=== PATIENT | male | born 1970 | race Caucasian/White ===

== ENCOUNTER 2021-02-16 14:04 | Emergency (ER) | payer OTHER ==
[~2021-02-16] VITALS: Ht 177.8 cm; Wt 52.6 kg
[2021-02-16] MEDS ORDERED: OMEPRAZOLE20 M1 PO (14:40)
[2021-02-16] MEDS ORDERED: POTASSIUM CHLO20 ME1 PO (14:40)
[2021-02-16] MEDS ORDERED: ELIQUIS5 MG PO (17:31)
--- NOTE | 2021-02-16 19:57 | EKG ---
[facility] [address] [facility] [place], [place] [address] Signed Sinus tachycardia Otherwise normal ECG No previous ECGs available Confirmed by MAHIN WELLRE DO ([id number]) on 02/16/2021 7:57:44 PM Electronically Signed By: MAHIN WELLER DO 02/16/211956 PATIENT NAME: DARRIUS CORDERO Electrocardiogram DATE OF : 72 PHYSICIAN: MAHIN WELLER DO REPORT #: [id number] REPORT IS CONFIDENTIAL AND NOT TO BE RELEASED WITHOUT AUTHORIZATION
== END 2021-02-16 19:12 | disposition left against medical advice (07) ==
LOC: ED 14:04
DX: I26.99 Other pulmonary embolism without acute cor pulmonale (principal); F10.129 Alcohol abuse with intoxication, unspecified; Y90.8 Blood alcohol level of 240 mg/100 ml or more; E87.6 Hypokalemia; E87.1 Hypo-osmolality and hyponatremia; Z20.822 Contact with and (suspected) exposure to COVID-19; Z79.899 Other long term (current) drug therapy
CPT/HCPCS: 80053; 83735; 83880; 84484; 85025; 85610; 85730; 93005; 93010; 96374; 99285-25; C9803; G0480; J3480; J7030; J7060; U0003

== ENCOUNTER 2021-03-11 08:52 | Emergency (ER) | payer OTHER ==
[~2021-03-11] VITALS: Ht 177.8 cm; Wt 52.6 kg
[~2021-03-11 08:52] MED LIST: ELIQUIS5 MG PO; OMEPRAZOLE20 M1 PO; POTASSIUM CHLO20 ME1 PO
--- OUTSIDE RECORDS SUMMARY | 2021-03-11 09:00 | XMS ---
PreManage Notification: DARRIUS CORDERO [employer] Events 1 event(s) in the past 18 months Most recent security events: Elopement at [facility] 02/16/2021 14:05 - Other Details: PATIENT LEFT AMA CRITERIA MET - [facility] - 2 Visits in 30 Days CARE PROVIDERS There are no care providers on record at this time. Erich has no Care Guidelines for this patient. E.DJerome VISIT COUNT (12 MO.) 2 [facility] Jorge A TOTAL 2 NOTE: Visits indicate total known visits. ED/C VISIT TRACKING (12 MO.) 03/11/2021 08:53 [facility] TYPE: Emergency COMPLAINT: - SOB,ABD SWELLING 02/16/2021 14:05 [facility] TYPE: Emergency COMPLAINT: - POSSIBLE BLOOD CLOT DIAGNOSES: - Hypokalemia - Hypo-osmolality and hyponatremia - Other usp (current) drug therapy - Blood alcohol level of 240 mg/100 ml or more - Shortness of breath - Alcohol abuse with intoxication, unspecified - Other pulmonary embolism without acute cor pulmonale INPATIENT VISIT TRACKING (12 MO.) No inpatient visits to display in this time frame [email or web address]
[2021-03-11] MEDS ORDERED: ALDACTONE50 MG PO (10:31)
[2021-03-11] MEDS ORDERED: FUROSEMIDE20 MG PO (10:31)
== END 2021-03-11 11:05 | disposition home or self-care (01) ==
LOC: ED 08:52
DX: K76.9 Liver disease, unspecified (principal); R18.8 Other ascites; Z79.899 Other long term (current) drug therapy
CPT/HCPCS: 71046; 80053; 81001; 85025; 85610; 85730; 99284-25

== ENCOUNTER 2021-04-29 15:33 | Emergency (ER) | payer OTHER ==
[~2021-04-29] VITALS: Ht 177.8 cm; Wt 71.6 kg
[~2021-04-29 15:33] MED LIST changes: +ALDACTONE50 MG PO; +FUROSEMIDE20 MG PO
[2021-04-29] MEDS ORDERED: FUROSEMIDE20 MG PO (16:43)
[2021-04-29] MEDS ORDERED: ALDACTONE50 MG PO (16:43)
--- NOTE | 2021-05-01 17:50 | EKG ---
[facility] [address] [facility] [place] [address] Signed Sinus tachycardia T wave abnormality, consider inferior ischemia Abnormal ECG When compared with ECG of 16-FEB-2021 14:55, T wave inversion now evident in Inferior leads Nonspecific T wave abnormality now evident in Lateral leads Confirmed by DENISE TERRELL MD ([id number]) on 05/01/2021 5:50:37 PM Electronically Signed By: DENISE TERRELL MD 05/01/21 1750 PATIENT NAME: CONSUELODARRIUS Electrocardiogram DATE OF : 72 PHYSICIAN: DENISE TERRELL MD REPORT #: [id number] REPORT IS CONFIDENTIAL AND NOT TO BE RELEASED WITHOUT AUTHORIZATION
== END 2021-04-29 17:35 | disposition home or self-care (01) ==
LOC: ED 15:33
DX: K72.90 Hepatic failure, unspecified without coma (principal); R18.8 Other ascites; Z79.01 Long term (current) use of anticoagulants; Z79.899 Other long term (current) drug therapy
CPT/HCPCS: 36415; 80053; 83735; 85025; 93005; 93010; 99284-25

== ENCOUNTER 2021-10-20 15:14 | Emergency (ER) | payer OTHER ==
[~2021-10-20] VITALS: Ht 177.8 cm; Wt 71.6 kg
[2021-10-20] MEDS ORDERED: CHLORDIAZEPOXID25 MG PO (20:09)
[2021-10-20] MEDS ORDERED: ONDANSETRON ODT8 MG PO (20:09)
== END 2021-10-20 20:25 | disposition home or self-care (01) ==
LOC: ED 15:14
DX: F10.239 Alcohol dependence with withdrawal, unspecified (principal); Z20.822 Contact with and (suspected) exposure to COVID-19; Z79.899 Other long term (current) drug therapy
CPT/HCPCS: 36415; 80053; 81001; 83735; 85025; 87502; 96365; 96366; 96375; 99284-25; C9803; J2060; J2405; J3411; J7030; U0003

== ENCOUNTER 2022-09-09 20:51 | Inpatient (IN) | payer OTHER ==
[~2022-09-09] VITALS: Ht 177.8 cm; Wt 57.1 kg
--- NOTE | ~2022-09-09 | OR ---
[facility] [address] [place], [place] [address] Draft DATE OF OPERATION: 09/15/2022 SURGEON: Duane Mcdonnell MD PREOPERATIVE DIAGNOSIS: Right intertrochanteric hip fracture. POSTOPERATIVE DIAGNOSIS: Right intertrochanteric hip fracture. PROCEDURE PERFORMED: Open reduction, internal fixation of right hip. DESKTOP ADMINISTRATOR: None. ANESTHESIA: Spinal. BLOOD LOSS: 100 mL. IMPLANTS: Four hole DHS with 90 mm lag screw 4.5 screws and one compression screw. BRIEF HISTORY: Chago is a 52-year-old gentleman who sustained a ground level fall nearly a week ago. He had heavy EtOH use and went through DTs. He also had a marked decrease in his platelets after one dose of Lovenox. He does have a history of PE. We stopped the Lovenox and have been transfusing the platelets and I have gotten his platelets and his withdrawal under control. Risks, benefits, and alternatives of surgery were discussed with him. He elected to proceed. PROCEDURE IN DETAIL: Once consent was obtained, he was taken to the operating room. After adequate anesthesia, he was placed on the operating room fracture table. The right hip was prepped and draped in a standard sterile fashion. Both legs were placed on in traction boots. The right hip was placed in traction and internally rotated. The image intensifier was brought in and the fracture was found to be well reduced. The incision was made laterally 4 inch incision was taken through skin and subcutaneous tissue. The Electronically Signed By: DUANE MCDONNELL MD 09/18/22 0831 PATIENT NAME: CHAGO CORDERO OPERATIVE REPORT DATE OF : 72 REPORT #: [id number] PHYSICIAN: DUANE MCDONNELL MD PCP: AYLEEN LLANES MD REPORT IS CONFIDENTIAL AND NOT TO BE RELEASED WITHOUT AUTHORIZATION [facility] [address] [place], [place] [address] Draft IT band was divided longitudinally. Blunt dissection with a Titus elevator was taken through the vastus lateralis down to the bone. The 135 guide was then placed on the lateral femur and the guide pin for the DHS was advanced from the lateral femur across the femoral neck into a center-center position in the head. It was then measured and drilled to a depth of 90 mm. The bone was quite solid, so we did tap the lag screw before placing it, it was then placed into position again under biplanar fluoroscopy. The four hole DHS was then impacted until it was flushed with the lateral femur. The four screws were then placed through the femur and the compression screw was placed. Once this was completed, a final radiograph showed excellent screw lengths, fracture reduction and plate placement. The wound was copiously irrigated with normal saline, closed with #2 Stratafix for the fascia, 0 Stratafix for the subcutaneous tissue and katerina for the skin. Dressed with an Aquacel dressing. He tolerated the procedure well. All sponge, needle, and instrument counts were correct. Duane Mcdonnell MD BA/HILDAL /[id number] Copies: ~ Electronically Signed By: DUANE MCDONNELL MD 09/18/22 0831 PATIENT NAME: CHAGO CORDERO GALLITO OPERATIVE REPORT DATE OF : 72 REPORT #: [id number] PHYSICIAN: DUANE MCDONNELL MD PCP: AYLEEN LLANES MD REPORT IS CONFIDENTIAL AND NOT TO BE RELEASED WITHOUT AUTHORIZATION
--- NOTE | ~2022-09-09 | DS ---
[facility] [address], [place] [address] Draft ADMISSION DATE: 09/09/2022 DISCHARGE DATE: 09/27/2022 ADMISSION DIAGNOSIS: Right intertrochanteric hip fracture. DISCHARGE DIAGNOSES: 1. Right intertrochanteric hip fracture. 2. Alcohol withdrawal. 3. Thrombocytopenia. BRIEF HISTORY: Chago is a 52-year-old gentleman who suffered a ground level fall injuring his right hip. He was transferred through EMS to the emergency department where radiographs showed the above fracture. He was admitted to my service at that point and hospitalist consult was obtained. His alcohol on admission was 405 and he immediately began having issues with his alcohol withdrawal. He was placed on the alcohol withdrawal protocol and placed in the ICU. He was placed on Lovenox for DVT prophylaxis since he has a past history of PE two years ago. After placing him on the Lovenox, his platelets went from 150 to about 58,000. The Lovenox was stopped and his platelets slowly started to increase. We did transfuse 4 units of platelets, gotten back up into the 150 range. He was taken to the operating room, underwent the open reduction and internal fixation. He had some issues with pain control, postoperatively blocks and oral pain medication was utilized to improve this. His alcohol withdrawal eventually went away. He was slow to recover in terms of his physical therapy toe-touch weightbearing. By the day of discharge, however, he was able to walk 100 feet and go up and down a set of stairs with good safety profile. He is able to get himself up and go to the bathroom with no assist. He will be discharged to home on hydromorphone, gabapentin, diclofenac, and Xarelto. He will follow up with me in early next week. If he should have any problems he will notify me immediately. Duane Mcdonnell MD BA/MODL /[id number] Electronically Signed By: DUANE MCDONNELL MD 09/28/22 1159 PATIENT NAME: CHAGO CORDERO DISCHARGE SUMMARY DATE OF : 72 REPORT #: [id number] PHYSICIAN: DUANE MCDONNELL MD PCP: AYLEEN LLANES MD REPORT IS CONFIDENTIAL AND NOT TO BE RELEASED WITHOUT AUTHORIZATION [address] [place], [place] [address] Draft Copies: ~ Electronically Signed By: DUANE MCDONNELL MD 09/28/22 1159 PATIENT NAME: CHAGO CORDERO DISCHARGE SUMMARY DATE OF : 72 REPORT #: [id number] PHYSICIAN: DUANE MCDONNELL MD PCP: AYLEEN LLANES MD REPORT IS CONFIDENTIAL AND NOT TO BE RELEASED WITHOUT AUTHORIZATION
--- OUTSIDE RECORDS SUMMARY | ~2022-09-09 | XMS | Continuity of Care Document ---
Demographics + + + | Address | [address] | | | [place] [address] | + + + | Preferred Language | Unknown | + + + | Marital Status | Never | + + + | Roman Catholic Affiliation | Unknown | + + + | Race | White | + + + | Ethnic Group | Not or | + + + Author + + + | Author | [facility] | + + + | Organization | [facility] | + + + | Address | [address] | | | [place] [address] | + + + | Phone | | + + + Care Team Providers + + + + | Care Site Director Name | Role | Phone | + + + + Unavailable | Unavailable | + + + + Unavailable | Unavailable | + + + + Allergies No information. Encounters No information. Functional Status No information. Immunizations No information. Medications + + + + | date | description | facility | + + + + | 2021-02-16 00:00 | APIXABAN | [facility] | + + + + | 2021-04-29 00:00 | SPIRONOLACTONE | [facility] | + + + + | 2021-04-29 00:00 | FUROSEMIDE | [facility] | + + + + | 2021-10-20 00:00 | ONDANSETRON | [facility] | + + + + | 2021-10-20 00:00 | OMEPRAZOLE | [facility] | + + + + | 2021-10-20 00:00 | CHLORDIAZEPOXIDE HCL | [facility] | + + + + Problems + + + + | date | description | facility | + + + + | 2021-02-16 00:00 | Hyponatremia | [facility] | + + + + | 2021-02-16 00:00 | Hypokalemia | [facility] | + + + + | 2021-02-16 00:00 | Alcohol abuse | [facility] | + + + + | 2021-02-16 00:00 | Alcoholic intoxication | [facility] | + + + + | 2021-02-16 00:00 | Pulmonary embolism | [facility] | + + + + | 2021-03-11 00:00 | Chronic liver disease | [facility] | + + + + Procedures No information. Results/Labs +--------+--------+ + +---------+--------+ + | test | date | author | facility | value | unit | | | | | | | | | interpreta | | | | | | | | tion | +--------+--------+ + +---------+--------+ + + + | Result panel 1 | + + + + + + +---------+ + + | (unknown) | (no date) | (unknown) | [facility] | (no | (units | (unknown) | | [facility] | | | | + + + + +---------+ + + + + | Result panel 2 | + + + + + + +---------+ + + | (unknown) | (no date) | (unknown) | [facility] | (no | (units | (unknown) | | | [facility] | [facility] | | | | + + + + +---------+ + + + + | Result panel 3 | + + + + + + +---------+ + + | (unknown) | (no date) | (unknown) | [facility] | (no | (units | (unknown) | | | [facility] | [facility] | | | | + + + + +---------+ + + + + | Result panel 4 | + + + + + + +---------+ + + | (unknown) | (no date) | (unknown) | [facility] | (no | (units | (unknown) | | | [facility] | [facility] | [facility] | | | | + + + + +---------+ + + + + | Result panel 5 | + + + + + + +---------+ + + | (unknown) | (no date) | (unknown) | [facility] | (no | (units | (unknown) | | | [facility] | [facility]) | [facility] | | | | + + + + +---------+ + + + + | Result panel 6 | + + + + + + +---------+ + + | (unknown) | (no date) | (unknown) | [facility] | (no | (units | (unknown) | | | [facility] | [facility] | [facility] | | | | + + + + +---------+ + + + + | Result panel 7 | + + + + + + +---------+ + + | (unknown) | (no date) | (unknown) | [facility] | (no | (units | (unknown) | | | [facility] | [facility] | [facility] | | | | + + + + +---------+ + + + + | Result panel 8 | + + + + + + +---------+ + + | (unknown) | (no date) | (unknown) | [facility] | (no | (units | (unknown) | | | [facility] | [facility] | [facility] | | | | + + + + +---------+ + + + + | Result panel 9 | + + + + + + +---------+ + + | (unknown) | (no date) | (unknown) | [facility] | (no | (units | (unknown) | | | [facility] | [facility] | [facility] | | | | + + + + +---------+ + + + + | Result panel 10 | + + + + + + +---------+ + + | (unknown) | (no date) | (unknown) | [facility] | (no | (units | (unknown) | | | [facility] | [facility] | [facility] | | | | + + + + +---------+ + + + + | Result panel 11 | + + + + + + +---------+ + + | (unknown) | (no date) | (unknown) | [facility] | (no | (units | (unknown) | | | [facility] | [facility] | | | | + + + + +---------+ + + + + | Result panel 12 | + + + + + + +---------+ + + | (unknown) | (no date) | (unknown) | [facility] | (no | (units | (unknown) | | | [facility] | [facility] | [facility] | | | | + + + + +---------+ + + + + | Result panel 13 | + + + + + + +---------+ + + | (unknown) | (no date) | (unknown) | [facility] | (no | (units | (unknown) | | | [facility] | [facility] | | | | + + + + +---------+ + + + + | Result panel 14 | + + + + + + +---------+ + + | (unknown) | (no date) | (unknown) | [facility] | (no | (units | (unknown) | | | [facility] | [facility] | | | | + + + + +---------+ + + + + | Result panel 15 | + + + + + + +---------+ + + | (unknown) | (no date) | (unknown) | [facility] | (no | (units | (unknown) | | | [facility] | [facility] | | | | + + + + +---------+ + + + + | Result panel 16 | + + + + + + +---------+ + + | (unknown) | (no date) | (unknown) | [facility] | (no | (units | (unknown) | | | [facility] | [facility] | | | | + + + + +---------+ + + + + | Result panel 17 | + + + + + + +---------+ + + | (unknown) | (no date) | (unknown) | [facility] | (no | (units | (unknown) | | | [facility] | [facility] | | | | + + + + +---------+ + + + + | Result panel 18 | + + + + + + +---------+ + + | (unknown) | (no date) | (unknown) | [facility] | (no | (units | (unknown) | | | [facility] | | | | + + + + +---------+ + + + + | Result panel 19 | + + + + + + +---------+ + + | (unknown) | (no date) | (unknown) | [facility] | (no | (units | (unknown) | | | [facility] | [facility] | | | | + + + + +---------+ + + + + | Result panel 20 | + + + + + + +---------+ + + | (unknown) | (no date) | (unknown) | [facility] | (no | (units | (unknown) | | | [facility] | | | | + + + + +---------+ + + + + | Result panel 21 | + + + + + + +---------+ + + | (unknown) | (no date) | (unknown) | [facility] | (no | (units | (unknown) | | | [facility] | | | | + + + + +---------+ + + + + | Result panel 22 | + + + + + + +---------+ + + | (unknown) | (no date) | (unknown) | [facility] | (no | (units | (unknown) | | | [facility] | | | | + + + + +---------+ + + + + | Result panel 23 | + + + + + + +---------+ + + | (unknown) | (no date) | (unknown) | [facility] | (no | (units | (unknown) | | | [facility] | | | | + + + + +---------+ + + + + | Result panel 24 | + + + + + + +---------+ + + | (unknown) | (no date) | (unknown) | [facility] | (no | (units | (unknown) | | | [facility] | | | | + + + + +---------+ + + + + | Result panel 25 | + + + + + + +---------+ + + | (unknown) | (no date) | (unknown) | [facility] | (no | (units | (unknown) | | | [facility] | | | | + + + + +---------+ + + + + | Result panel 26 | + + + + + + +---------+ + + | (unknown) | (no date) | (unknown) | [facility] | (no | (units | (unknown) | | | [facility] | | | | + + + + +---------+ + + + + | Result panel 27 | + + + + + + +---------+ + + | (unknown) | (no date) | (unknown) | [facility] | (no | (units | (unknown) | | | [facility] | | | | + + + + +---------+ + + + + | Result panel 28 | + + + + + + +---------+ + + | (unknown) | (no date) | (unknown) | [facility] | (no | (units | (unknown) | | | [facility] | | | | + + + + +---------+ + + + + | Result panel 29 | + + + + + + +---------+ + + | (unknown) | (no date) | (unknown) | [facility] | (no | (units | (unknown) | | | [facility] | | | | + + + + +---------+ + + + + | Result panel 30 | + + + + + + +---------+ + + | (unknown) | (no date) | (unknown) | [facility] | (no | (units | (unknown) | | | [facility] | | | | + + + + +---------+ + + + + | Result panel 31 | + + + + + + +---------+ + + | (unknown) | (no date) | (unknown) | [facility] | (no | (units | (unknown) | | | [facility] | | | | + + + + +---------+ + + + + | Result panel 32 | + + + + + + +---------+ + + | (unknown) | (no date) | (unknown) | [facility] | (no | (units | (unknown) | | | [facility] | | | | + + + + +---------+ + + + + | Result panel 33 | + + + + + + +---------+ + + | (unknown) | (no date) | (unknown) | [facility] | (no | (units | (unknown) | | | [facility] | | | | + + + + +---------+ + + + + | Result panel 34 | + + + + + + +---------+ + + | (unknown) | (no date) | (unknown) | [facility] | (no | (units | (unknown) | | | [facility] | [facility] | | | | + + + + +---------+ + + + + | Result panel 35 | + + + + + + +---------+ + + | (unknown) | (no date) | (unknown) | [facility] | (no | (units | (unknown) | | | [facility] | | | | + + + + +---------+ + + + + | Result panel 36 | + + + + + + +---------+ + + | (unknown) | (no date) | (unknown) | [facility] | (no | (units | (unknown) | | | [facility] | [facility] | | [facility] | | | | + + + + +---------+ + + + + | Result panel 37 | + + + + + + +---------+ + + | (unknown) | (no date) | (unknown) | [facility] | (no | (units | (unknown) | | | [facility] | [facility] | | [facility] | | | | + + + + +---------+ + + + + | Result panel 38 | + + + + + + +---------+ + + | (unknown) | (no date) | (unknown) | [facility] | (no | (units | (unknown) | | | [facility] | [facility] | | | | + + + + +---------+ + + + + | Result panel 39 | + + + + + + +---------+ + + | (unknown) | (no date) | (unknown) | [facility] | (no | (units | (unknown) | | | [facility] | [facility] | | [facility] | | | | + + + + +---------+ + + + + | Result panel 40 | + + + + + + +---------+ + + | (unknown) | (no date) | (unknown) | [facility] | (no | (units | (unknown) | | | [facility] | [facility] | [facility] | | | | + + + + +---------+ + + + + | Result panel 41 | + + + + + + +---------+ + + | (unknown) | (no date) | (unknown) | [facility] | (no | (units | (unknown) | | | [facility] | [facility] | [facility] | | | | + + + + +---------+ + + + + | Result panel 42 | + + + + + + +---------+ + + | (unknown) | (no date) | (unknown) | [facility] | (no | (units | (unknown) | | | [facility] | [facility] | [facility] | | | | + + + + +---------+ + + + + | Result panel 43 | + + + + + + +---------+ + + | (unknown) | (no date) | (unknown) | [facility] | (no | (units | (unknown) | | | [facility] | [facility] | [facility] | [facility] | | | | + + + + +---------+ + + + + | Result panel 44 | + + + + + + +---------+ + + | (unknown) | (no date) | (unknown) | [facility] | (no | (units | (unknown) | | | [facility] | [facility] | | [facility] | | | | + + + + +---------+ + + + + | Result panel 45 | + + + + + + +---------+ + + | (unknown) | (no date) | (unknown) | [facility] | (no | (units | (unknown) | | | [facility] | [facility] | | [facility] | | | | + + + + +---------+ + + + + | Result panel 46 | + + + + + + +---------+ + + | (unknown) | (no date) | (unknown) | [facility] | (no | (units | (unknown) | | | [facility] | [facility] | | [facility] | | | | + + + + +---------+ + + + + | Result panel 47 | + + + + + + +---------+ + + | (unknown) | (no date) | (unknown) | [facility] | (no | (units | (unknown) | | | [facility] | [facility] | | [facility] | | | | + + + + +---------+ + + + + | Result panel 48 | + + + + + + +---------+ + + | (unknown) | (no date) | (unknown) | [facility] | (no | (units | (unknown) | | | [facility] | [facility] | [facility] | | | | + + + + +---------+ + + + + | Result panel 49 | + + + + + + +---------+ + + | (unknown) | (no date) | (unknown) | [facility] | (no | (units | (unknown) | | | [facility] | [facility] | | | | + + + + +---------+ + + + + | Result panel 50 | + + + + + + +---------+ + + | (unknown) | (no date) | (unknown) | [facility] | (no | (units | (unknown) | | | [facility] | [facility] | | [facility] | | | | + + + + +---------+ + + + + | Result panel 51 | + + + + + + +---------+ + + | (unknown) | (no date) | (unknown) | [facility] | (no | (units | (unknown) | | | [facility] | [facility] | | | | + + + + +---------+ + + + + | Result panel 52 | + + + + + + +---------+ + + | (unknown) | (no date) | (unknown) | [facility] | (no | (units | (unknown) | | | [facility] | [facility] | | | | + + + + +---------+ + + + + | Result panel 53 | + + + + + + +---------+ + + | (unknown) | (no date) | (unknown) | [facility] | (no | (units | (unknown) | | | [facility] | | | | + + + + +---------+ + + + + | Result panel 54 | + + + + + + +---------+ + + | (unknown) | (no date) | (unknown) | [facility] | (no | (units | (unknown) | | | [facility] | [facility] | | | | + + + + +---------+ + + + + | Result panel 55 | + + + + + + +---------+ + + | (unknown) | (no date) | (unknown) | [facility] | (no | (units | (unknown) | | | [facility] | | | | + + + + +---------+ + + + + | Result panel 56 | + + + + + + +---------+ + + | (unknown) | (no date) | (unknown) | [facility] | (no | (units | (unknown) | | | [facility] | | | | + + + + +---------+ + + + + | Result panel 57 | + + + + + + +---------+ + + | (unknown) | (no date) | (unknown) | [facility] | (no | (units | (unknown) | | | [facility] | [facility] | | | | + + + + +---------+ + + + + | Result panel 58 | + + + + + + +---------+ + + | (unknown) | (no date) | (unknown) | [facility] | (no | (units | (unknown) | | | [facility] | | | | + + + + +---------+ + + + + | Result panel 59 | + + + + + + +---------+ + + | (unknown) | (no date) | (unknown) | [facility] | (no | (units | (unknown) | | | [facility] | [facility] | | | | + + + + +---------+ + + + + | Result panel 60 | + + + + + + +---------+ + + | (unknown) | (no date) | (unknown) | [facility] | (no | (units | (unknown) | | | [facility] | | | | + + + + +---------+ + + + + | Result panel 61 | + + + + + + +---------+ + + | (unknown) | (no date) | (unknown) | [facility] | (no | (units | (unknown) | | [facility] | | | | + + + + +---------+ + + + + | Result panel 62 | + + + + + + +---------+ + + | (unknown) | (no date) | (unknown) | [facility] | (no | (units | (unknown) | | [facility] | | | | + + + + +---------+ + + + + | Result panel 63 | + + + + + + +---------+ + + | (unknown) | (no date) | (unknown) | [facility] | (no | (units | (unknown) | | [facility] | | | | + + + + +---------+ + + + + | Result panel 64 | + + + + + + +---------+ + + | (unknown) | (no date) | (unknown) | [facility] | (no | (units | (unknown) | | [facility] | | | | + + + + +---------+ + + + + | Result panel 65 | + + + + + + +---------+ + + | (unknown) | (no date) | (unknown) | [facility] | (no | (units | (unknown) | | | [facility] | | | | + + + + +---------+ + + + + | Result panel 66 | + + + + + + +---------+ + + | (unknown) | (no date) | (unknown) | [facility] | (no | (units | (unknown) | | | [facility] | | | | + + + + +---------+ + + + + | Result panel 67 | + + + + + + +---------+ + + | (unknown) | (no date) | (unknown) | [facility] | (no | (units | (unknown) | | | [facility] | | | | + + + + +---------+ + + + + | Result panel 68 | + + + + + + +---------+ + + | (unknown) | (no date) | (unknown) | [facility] | (no | (units | (unknown) | | | [facility] | | | | + + + + +---------+ + + Social History + + + + | date | description | facility | + + + + | 2021-10-20 00:00 | Unknown if ever smoked | [facility] | + + + + Vital Signs + + + +---------+ | date | measurement | value | units | + + + +---------+ | 2021-04-29 00:00 | BMI | 22.6 | kg/m2 | + + + +---------+ | 2021-04-29 00:00 | BP_diastolic | 87 | mmHg | + + + +---------+ | 2021-04-29 00:00 | BP_systolic | 123 | mmHg | + + + +---------+ | 2021-04-29 00:00 | heart_rate | 102 | /min | + + + +---------+ | 2021-04-29 00:00 | height_metric | 177.8 | cm | + + + +---------+ | 2021-04-29 00:00 | height_standard | 70 | in | + + + +---------+ | 2021-04-29 00:00 | o2_saturation | 99 | % | + + + +---------+ | 2021-04-29 00:00 | respiration_rate | 19 | /min | + + + +---------+ | 2021-04-29 00:00 | temperature_metric | 37.17 | C | | | | | | + + + +---------+ | 2021-04-29 00:00 | | 98.9 | F | | | temperature_standar | | | | | d | | | + + + +---------+ | 2021-04-29 00:00 | weight_metric | 71.58 | kg | + + + +---------+ | 2021-04-29 00:00 | weight_standard | 157.81 | lb | + + + +---------+ | 2021-10-20 00:00 | BMI | 22.6 | kg/m2 | + + + +---------+ | 2021-10-20 00:00 | BP_diastolic | 87 | mmHg | + + + +---------+ | 2021-10-20 00:00 | BP_systolic | 111 | mmHg | + + + +---------+ | 2021-10-20 00:00 | heart_rate | 93 | /min | + + + +---------+ | 2021-10-20 00:00 | height_metric | 177.8 | cm | + + + +---------+ | 2021-10-20 00:00 | height_standard | 70 | in | + + + +---------+ | 2021-10-20 00:00 | o2_saturation | 96 | % | + + + +---------+ | 2021-10-20 00:00 | respiration_rate | 20 | /min | + + + +---------+ | 2021-10-20 00:00 | temperature_metric | 37 | C | | | | | | + + + +---------+ | 2021-10-20 00:00 | | 98.6 | F | | | temperature_standar | | | | | d | | | + + + +---------+ | 2021-10-20 00:00 | weight_metric | 71.58 | kg | + + + +---------+ | 2021-10-20 00:00 | weight_standard | 157.81 | lb | + + + +---------+"
--- OUTSIDE RECORDS SUMMARY | ~2022-09-09 | XMS | Continuity of Care Document ---
Demographics + + + | Address | [address] [place] | | | [place] [address] | + + + | Preferred Language | Unknown | + + + | Marital Status | Never | + + + | [employer] Affiliation | Unknown | + + + | Race | White | + + + | Ethnic Group | Not or | + + + Author + + + | Author | [facility] | + + + | Organization | [facility] | + + + | Address | [address] | | | [place] [address] | + + + | Phone | | + + + Care Team Providers + + + + | Care Land Planner Name | Role | Phone | + + + + Unavailable | Unavailable | + + + + Unavailable | Unavailable | + + + + Allergies No information. Encounters No information. Functional Status No information. Immunizations No information. Medications + + + + | date | description | facility | + + + + | 2021-02-16 00:00 | APIXABAN | [facility] | + + + + | 2021-04-29 00:00 | SPIRONOLACTONE | [facility] | + + + + | 2021-04-29 00:00 | FUROSEMIDE | [facility] | + + + + | 2021-10-20 00:00 | ONDANSETRON | [facility] | + + + + | 2021-10-20 00:00 | OMEPRAZOLE | [facility] | + + + + | 2021-10-20 00:00 | CHLORDIAZEPOXIDE HCL | [facility] | + + + + Problems + + + + | date | description | facility | + + + + | 2021-02-16 00:00 | Hyponatremia | [facility] | + + + + | 2021-02-16 00:00 | Hypokalemia | [facility] | + + + + | 2021-02-16 00:00 | Alcohol abuse | [facility] | + + + + | 2021-02-16 00:00 | Alcoholic intoxication | [facility] | + + + + | 2021-02-16 00:00 | Pulmonary embolism | [facility] | + + + + | 2021-03-11 00:00 | Chronic liver disease | [facility] | + + + + Procedures No [...]
--- OUTSIDE RECORDS SUMMARY | ~2022-09-09 | XMS | Continuity of Care Document ---
Demographics + + + | Address | [address] | | | [place] [address] | + + + | Preferred Language | Unknown | + + + | Marital Status | Never | + + + | Worship Affiliation | Unknown | + + + | Race | White | + + + | Ethnic Group | Not or | + + + Author + + + | Author | [facility] | + + + | Organization | [facility] | + + + | Address | [address] | | | [place] [address] | + + + | Phone | | + + + Care Team Providers + + + + | Care Bilingual Customer Service Specialist Name | Role | Phone | + + + + Unavailable | Unavailable | + + + + Unavailable | Unavailable | + + + + Allergies No information. Encounters No information. Functional Status No information. Immunizations No information. Medications + + + + | date | description | facility | + + + + | 2021-02-16 00:00 | APIXABAN | [facility] | + + + + | 2021-04-29 00:00 | SPIRONOLACTONE | [facility] | + + + + | 2021-04-29 00:00 | FUROSEMIDE | [facility] | + + + + | 2021-10-20 00:00 | ONDANSETRON | [facility] | + + + + | 2021-10-20 00:00 | OMEPRAZOLE | [facility] | + + + + | 2021-10-20 00:00 | CHLORDIAZEPOXIDE HCL | [facility] | + + + + Problems + + + + | date | description | facility | + + + + | 2021-02-16 00:00 | Hyponatremia | [facility] | + + + + | 2021-02-16 00:00 | Hypokalemia | [facility] | + + + + | 2021-02-16 00:00 | Alcohol abuse | [facility] | + + + + | 2021-02-16 00:00 | Alcoholic intoxication | [facility] | + + + + | 2021-02-16 00:00 | Pulmonary embolism | [facility] | + + + + | 2021-03-11 00:00 | Chronic liver disease | [facility] | + + + + [...]
[~2022-09-09 20:51] MED LIST changes: +CHLORDIAZEPOXID25 MG PO; +ONDANSETRON ODT8 MG PO
[2022-09-10] VITALS (16 sets, daily range): BP systolic 99–152; BP diastolic 57–114
--- NOTE | 2022-09-10 00:19 | NUR ---
PT TO FLOOR WITH EVAPORATOR VIA STRETCHER. BEDSIDE REPORTS RECEIVED. ORDERS RECEIVED. PT ALERT AND ORIENTED. ABLE TO SLIDE TRANSFER SELF FROM STRETCHER TO BED. REPORTS RIGHT HIP PAIN TOLERABLE AT REST. DENIES PRN WHEN OFFERED. TELE PLACED PER ORDER. PT NPO. IVF INFUSING WNL. SOLID WASTE MANAGER IN ROOM FOR ADMISSION.
--- NOTE | 2022-09-10 00:56 | NUR ---
ADMISSION ASSESSMENT COMPLETE. PT LYING ON LEFT SIDE FOR COMFORT. CMS INTACT BILAT. PT REPORTS RIGHT HIP PAIN 8/. PRN FOR PAIN ADMIN PER EMAR. CPOX PLACED. PT DENIES QUESTIONS OR CONCERNS. PT ORIENTED TO ROOM AND NURSE CALL LIGHT. BED ALARM FOR SAFTETY. CALL LIGHT IN REACH.
--- NOTE | 2022-09-10 02:46 | NUR ---
IV PUMP ALARMING. ISSUE RESOLVED. PT REPORTS HE IS RESTING WELL. DENIES NEEDS.
--- NOTE | 2022-09-10 04:24 | NUR ---
PT REPORTS RIGHT HIP/RIB PAIN 12/03. PRN FOR PAIN ADMIN PER EMAR. ASSESSMENT UNCHANGED. PT WITH SLIGHT TREMORS IN HANDS. DENIES OTHER WITHDRAWAL SX. CIWA SCORE=3. NO FURTHER NEEDS. BED ALARM FOR SAFETY. CALL LIGHT IN REACH.
--- NOTE | 2022-09-10 05:00 | NUR ---
VS AND I&O OBTAINED. PT REMAINS NPO. ORAL SWABS AND CHAPSTICK PROVIDED.
--- NOTE | 2022-09-10 07:28 | NUR ---
ETOH WD SCALE OF 13. PRIMARY NURSE NOTIFIED.
--- NOTE | 2022-09-10 07:42 | NUR ---
CALLED DR MARTINEZ REGARDING PT HR OF 150s, NAUSEA, DIAPHORETIC AND SHAKING, CIWA OF 13. ORDERS FOR HOSPITALIST CONSULT AND 1MG OF ATIVAN. NO FURTHER ORDERS AT THIS TIME. ATTEMPTED CALL TO HOSPITALIST, NO ANSWER.
--- NOTE | 2022-09-10 07:51 | NUR ---
RECEIVED REPORT FROM BALDEMAR LARSON. PT VOICES PAIN BUT WOULD LIKE SOMETHING OTHER THAN DILAUDED. PT STATED DILAUDID MADE HIM TOO FLUSHED. RN WILL INQUIRE ABOUT HOSPITALIST CONSULT.
--- NOTE | 2022-09-10 10:40 | NUR ---
ROUNDED ON PT. RESTING COMFORTABLY WITH EYES CLOSED. RESPIRATIONS EVEN AND REGULAR.
--- NOTE | 2022-09-10 10:45 | NUR ---
ROUNDED ON PT. PT RESTING IN BED COMFROTABLY WITH EYES CLOSED. RESPIRATIONS EVEN AND REGULAR.
--- NOTE | 2022-09-10 10:45 | NUR ---
MED REC COMPLETE - PT STATES HE TAKES NO MEDICATIONS
--- NOTE | 2022-09-10 11:48 | NUR ---
ROUNDED ON PT. RESTING COMFORTABLY IN BED. REPORTS PAIN 5/10 WHICH IS AN IMPROVEMENT FROM THIS MORNING. PT REPORTS HE DRINKS 3-4 BEERS A DAY AND HIS LAST DRINK WAS YSTERDAY EVENING.
--- NOTE | 2022-09-10 12:00 | NUR ---
REPORT RECEIVED FROM SID. PT ARRIVES FROM MED SURG INTO ROOM 129, TRANSFERRED FOR MANAGEMENT OF ALCOHOL WITHDRAWAL, HAS A RIGHT HIP FX AWAITING SURGERY WITH DR MARTINEZ. PT IS ALERT AND AWAKE, ARRIVES WITH BUCKS TRACTION IN PLACE IN BED. UPON ASSESSMENT PT HAS MODERATE TREMORS, DENIES HEADACHE, DENIES HALLUCINATIONS BUT DOES C/O NAUSEA. CIWA IS 10. WHEN TALKING WITH PT, HE SUDDENLY STARTED RETCHING AND WITH THIS SMALL MOVEMENT HE STARTED YELLING IN PAIN, 10/10. 1MG IV DILAUDID GIVEN WITH 1MG IV ATIVAN AND 4MG IV ZOFRAN.
--- NOTE | 2022-09-10 12:06 | NUR ---
PT TRANSFERRED TO CCU. REPORT GIVEN TO IRMA LARSON.
--- NOTE | 2022-09-10 13:47 | NUR ---
DR. MARTINEZ CALLED TO VERIFY ORDERS - CLARIFIED THE TORADOL, LOVENOX, AND DIET ORDER. ORDERS PLACED IN [employer]. PT REPORTS HE IS A SMOKER DAILY AND A NICOTINE PATCH WILL BE ORDERED FOR HIM. CIWA CURRENTLY 5 AT THIS TIME. PT WILLING TO TRY AN OXYCODONE FOR PAIN CONTROL.
--- NOTE | 2022-09-10 16:30 | NUR ---
ATIVAN 1 MG IV GIVEN FOR TREMORS.
--- NOTE | 2022-09-10 17:17 | EKG ---
[facility] [address] [place] [address] Signed Normal sinus rhythm Normal ECG When compared with ECG of 29-APR-2021 16:10, T wave inversion no longer evident in Inferior leads Nonspecific T wave abnormality no longer evident in Lateral leads Confirmed by Ge Brumfield MD () on 09/10/2022 5:17:01 PM Electronically Signed By: GE BRUMFIELD MD 09/10/22 1717 PATIENT NAME: DARRIUS CORDERO Electrocardiogram DATE OF : 72 PHYSICIAN: GE BRUMFIELD MD REPORT #: [id number] REPORT IS CONFIDENTIAL AND NOT TO BE RELEASED WITHOUT AUTHORIZATION
--- NOTE | 2022-09-10 17:49 | NUR ---
PT GIVEN 1 MG IV DILAUDID FOR PAIN, IN ANTICIPATION OF MOVIGN PATIENT TO VISUALIZE HIS COCCYX AREA AND PLACE AN ALLEVYN. PT AGREEABLE BUT APPREHENSIVE ABOUT THIS MOVEMENT.
--- NOTE | 2022-09-10 18:00 | NUR ---
PATIENT'S BUTTOCK/COCCYX VISUALIZED AND NO REDNESS NOTED. ALLEVYN PLACED FOR PROPHYLAXIS. PT TOLERATED THIS MOVEMENT VERY WELL. CONTINUE TO MONITOR. IVF CONTINUE AT 125 ML/HR.
--- NOTE | 2022-09-10 19:05 | NUR ---
Pt requested new Sprite. Gave Pt Sprite and notified RN. Call light left in reach. No other needs expressed by Pt.
--- NOTE | 2022-09-10 19:57 | NUR ---
PATIENT IS RESTING IN BED WATCHING TV. VS STABLE. PATIENT REPORTS PAIN IS MANAGEABLE. HURTS MORE WITH MOVEMENT; OTHERWISE DENIES CONCERNS.
--- NOTE | 2022-09-10 20:39 | NUR ---
PATIENT PROVIDED WITH SCHEDULED MEDS. PATIENT DENIED NAUSEA BUT REPORTS INCREASED PAIN DUE TO COUGHING AND MOVEMENT. PRN DILAUDID PROVIDED. PATIENT THEN BECAME NAUSEOUS AFTER THAT AND HAD 100 MLS OF EMESIS. PO ATIVAN HAD BEEN GIVEN FOR CIWA >8, AN ADDITIONAL DOSE OF IV ATIVAN GIVEN AFTER EMESIS. PRN ZOFRAN ALSO PROVIDED. PATIENT IS AAOX3. ANXIOUS AND TREMULOUS. REPORTS PAIN 5/10 AT REST BUT "11"/10 WITH ANY MOVMMENT. PATIENT REMAINS IN TRACTION. PEDAL PULSE EASILY FELT ON RIGHT FOOT. IV FLUIDS PER ORDER, SITE WNL. 1L NC IN PLACE. LUNGS ARE DIM BUT CLEAR. PATIENT DENIED ANY OTHER NEEDS. CALL LIGHT IN REACH.
--- NOTE | 2022-09-10 22:47 | NUR ---
PATIENT REPORTS PAIN 8/10 BUT HAS BEEN ABLE TO SLEEP SOME. PRN OXY PROVIDED. PATIENT DENIED NAUSEA. VS STABLE.
[2022-09-11] VITALS (14 sets, daily range): BP systolic 110–150; BP diastolic 83–105
--- NOTE | 2022-09-11 02:50 | NUR ---
PATIENT'S HR UP TO THE 140'S AND PATIENT CALLED REPORTING THE NEED TO VOID. ASSISTED PATIENT TO USE THE URNAL. PATIENT'S URINE IS DARK LISA/BROWN. ONLY VOIDED 100 MLS. BLADDER SCAN FOR 56MLS. PATIENT PROVIDED WITH SCHEDULED AND PRN PAIN MEDS AND ATIVAN FOR CIWA >8. PATIENT'S HR DOWN INTO THE 90'S. WHILE AWAKE PATIENT'S Sp02 WAS 85-88% ON 2L NC. TITRATED TO 4L NC AND ENCOURAGED PATIENT TO DEEP BREATH. LUNG SOUNDS ARE CLEAR. REPOSITIONED PATIENT IN BED SLIGHTLY. PATIENT TOLERATED WELL.
--- NOTE | 2022-09-11 06:00 | NUR ---
SECOND IV SITE STARTED AND BLOOD DRAW FOR TYPE AND CROSS.
--- NOTE | 2022-09-11 06:40 | NUR ---
DISCUSSED LAB FINDINGS AND POOR URINE OUTPUT WITH . ORDERS TO TYPE AND SCREEN PATIENT WITH 2 UNITS PRBC ON HOLD AND CONSIDERING PLATELETS. ALSO REQUEST THIS RN GIVES AN UPDATE; WHICH WAS DONE.
--- NOTE | 2022-09-11 07:30 | NUR ---
REPORT RECEIVED FROM BOBO LARSON. PT IS RESTING IN BED WITH EYES CLOSED, RESP EVEN AND UNLABORED RR 12, SPO2 99% ON 2L/O2, HR 80'S SINUS RHYTHM.
--- NOTE | 2022-09-11 08:50 | NUR ---
IN TO DO AM MEDS AND ASSESSMENT. PT IS AWAKE IN BED WITH GIRLFRIEND AT BEDSIDE. RIGHT LEG IS IN 10# BUCKS TRACTION, CMS INTACT, PT STATES HE DOES HAVE ALL FEELING IN TOES AND FOOT. PAIN IS STARTING TO INCREASE, 10MG OXYCODONE GIVEN.
--- NOTE | 2022-09-11 10:45 | NUR ---
BECCA KELLY IS IN TALKING WITH PT, DISCUSSING PLAN OF CARE.
--- NOTE | 2022-09-11 11:00 | NUR ---
IN TO SEE PATIENT. PATIENT AWAKE TALKING WITH JUSTINO KELLY WHO IS AT THE BEDSIDE. PATIENT CURRENTLY LIVES IN A [place] HOME [place] WITH HIS SO DIXON. PATIENT STATES THEY HAVE BEEN TOGETHER FOR 7 YEARS AND SHE WILL BE ABLE TO ASSIST HIM WHEN HE DISCHARGES. PATIENT DID NOT RQUIRE ANY DME PRIOR TO THIS ADMISSION. JUSTINO KELLY ADVISES PATIENT WILL REQUIRE WALKER OR CRUTCHES AFTER HIS SURGERY. PATIENT DENIES FINANCIAL NEEDS. PATIENT IS INTERESTED IN DISCUSSING SOME DETOX OPTIONS, BUT WHEN ASKED IF I COULD CONTACT [facility] OR [facility] PATIENT DECLINES. RESOURCES LEFT AT THE BEDSIDE AND ADVISED PATIENT THAT IF HE CHANGES HIS MIND TO LET THE STAFF KNOW. ALL DEMOGRAPHIC INFORMATION VERIFIED. NO OTHER NEEDS FROM PATIENT AT THIS TIME. WILL CONTINUE TO CHECK IN WITH THE PATIENT DURING HIS STAY.
--- NOTE | 2022-09-11 12:00 | NUR ---
PT REMAINS RESTING WITH EYES CLOSED, RESP EVEN AND UNLABORED, SPO2 98% ON 2L/O2. HR 90'S SINUS RHYTHM.
--- NOTE | 2022-09-11 13:49 | NUR ---
IN TO START INFUSION OF PLATELETS, PT AWAKE IN BED WATCHING TV. DENIES NEEDS AT THIS TIME, STATES PAIN HAS BEEN DOING "A LOT BETTER".
--- NOTE | 2022-09-11 14:30 | NUR ---
IN TO CHECK ON PT HE YELLED OUT IN SOME PAIN WITH MOVEMENT-10MG OXYCODONE GIVEN, HE STATES PAIN IS STARTING TO COME UP AND RATES IT 5/10 NOW.
--- NOTE | 2022-09-11 16:00 | NUR ---
PT HAS BEEN RESTING WITH EYES CLOSED, APPEARS RESTFUL AND COMFORTABLE. HR 100, RR 15, SPO2 92% ON ROOM AIR.
--- NOTE | 2022-09-11 16:54 | NUR ---
LAB IN TO DRAW
--- NOTE | 2022-09-11 18:34 | NUR ---
ANESTHESIA IN TO DO NERVE BLOCK.
--- NOTE | 2022-09-11 20:00 | NUR ---
PT ASSESSED AND FOUND TO BE RESTING IN HOSPITAL BED ALERT AND ORIENTED WITH A GCS OF 15. PT FOLLOWS SIMPLE COMMANDS. CMS INTACT X 4. PT WITH A PAIN SCORE OF 0 S/P NERVE BLOCK. BASELINE V/S OBTAINED. ALARM LIMITS SET. R. LOWER LOWER EXTREMITY TRACTION IN PLACE WITH 10 LBS OF WEIGHT. NURSE CALL LIGHT PLACED AT PTS SIDE. PT EDUCATED ON REPOSITIONING AND ROM LIMITITATIONS D/T INJURY. PT WITH NO QUESTIONS OR CONCERNS. DR. LA CONSULTED REGARDGIN K OF 3.4, CONTINUED TACHYCARDIA, REDUCED U/O AND NEED FOR PUD PROPHALAXIS. NEW ORDERS OBTAINED.
--- NOTE | 2022-09-11 21:00 | NUR ---
PT BATHED IN CHG WIPES. PT PLACED INTO [facility] GOWN AND LENINS. CMS INTACT IN R. LOWER EXTREMITY. TRACTION SPLINT REMOVED, PELVIS SECURED WITH WRAP AND PT TRANSFERRED TO R. SIDE WITH TWO RNS PRESENT. PT TRANSFERRED BACK WITHOUT PROBLEM. CMS REMAINS INTACT. TRACTION SPLINT RE-APPLIED. PT WITH NO PAIN AT THIS TIME. CALL LIGHT AT BEDSIDE.
[2022-09-12] VITALS (23 sets, daily range): BP systolic 92–146; BP diastolic 75–122
--- NOTE | 2022-09-12 03:35 | NUR ---
PT NOTED TO BE ATTEMPTING TO GET OUT OF BED. PT REASSESSED AND FOUND TO BE EXPERIENCING AN INCREASE IN ANXIOUSNESS AND RESTLESSNESS. CIWA ASSESSED AND PRN MEDICATIONS ADMINISTERED. PT REMAINS A&O X 4 WITH A GCS OF 15. CMS REMAINS INTACT IN R. LOWER EXREMITY. PT REPOSITIONED IN BED BY TWO RNS. TRACTION SPLINT REMAINS INTACT.
--- NOTE | 2022-09-12 06:44 | NUR ---
PT REMAINS AWAKE WITH MINIMAL SLEEP OVER NIGHT. PT WITH INCREASED TREMORS, ANXIOUSNESS AND RESTLESTNESS. PT ATTEMPTING TO GET OUT OF BED AND CONTINUES PULLING AT LINES. PT RE-DIRECTED MULTIPLE TIMES AND PRN ADMINISTERED FOR INCREASED CIWA SCORES. PT DENIES PAIN TO R. LOWER EXTREMITY/ HIP BUT STATES HIS HIP IS TENDER WITH ANY MOVEMENT. PT REMAINS ALERT AND ORIENTED TO PERSON, PLACE AND EVENT BUT STATES THE YEAR IS 1993. PT RE-DIRECTED TO APPROPRIATE TIME/ DATE. PT FOLLOWS SIMPLE COMMANDS. CMS REMAINS INTACT X 4 WITH NOTED TINGLING SENSATION IN R. LOWER EXTREMITY. PT HAS BEEN IN A NSR TO ST, NORMOTENSIVE AND A-FEBRILE THROUGHOUT THE NIGHT. PT WITH ADEQUATE U/O. LAST BM NOTED ON 09/09, PT IS TAKING A BOWEL REGIMENT. LABS: NA DOWN 6 POINTS OVER A 24 HR PERIOD. K AT 4 S/T 40 MEQ K REPLACEMENT VIA PIV. BUN/ CREAT UNREMARKABLE. H/H IMPROVED. PLT COUNT 79. PT WITHOUT LEUKOCYTOSIS.
--- NOTE | 2022-09-12 06:50 | NUR ---
DR. LA INFORMED OF INCREASED CIWA SCORE. ADVISED HE WILL BE AT BEDSIDE MOMENTARILY. NO NEW ORDERS OBTAINED AT THIS TIME.
--- NOTE | 2022-09-12 07:50 | NUR ---
PATIENT NOTED TO BE OFF MONITOR AND MOVING IN ROOM. HR WAS 130s BEFORE HE CAME OFF MONITOR. PT HAD TORN APART MARKETING SYSTEMS MANAGER, WAS MOVING TOWARDS EDGE OF BED, AND VERY CONFUSED. PT IS PLEASANT, BUT VERY RESTLESS. PRN ATIVAN GIVEN AT 0730. PT'S LINEN SOAKED WITH URINE. PT ROLLED AND NEW DRAW SHEET PLACED BELOW HIM. BUCKS TRACTION REMAINS ON AT 10# FOR RIGHT HIP. PT IS ABLE TO MOVE SELF IN BED MUCH BETTER WITHOUT MUCH PAIN COMPARED TO SUNDAY WHEN THIS RN SAW PATIENT. PT HAD ALSO DISCONNECTED HIMSELF FROM IV FLUIDS. PT WAS REACHING FOR IV SITES. NEW GOWN PLACED. REPEAT DOSE OF ATIVAN GIVEN AT 0745. WAITIGN ON DR. BRUMFIELD FOR FURTHER ORDERS. PT CONTINUES TO BE VERY RESTLESS IN BED AND CONFUSED. PT CONTINUES TO TAKE EVERYTHING OFF. HR REMAINS 120-130s AT THIS TIME.
--- NOTE | 2022-09-12 08:10 | NUR ---
Spoke with RN. Pts surgery has been delayed as pt now in DTs.
--- NOTE | 2022-09-12 08:14 | NUR ---
DR. BRUMFIELD CALLED FOR PATIENT'S CONTINUED AGITATION AND ELEVATED CIWAs. DR. BRUMFIELD TO COME TO BEDSIDE.
--- NOTE | 2022-09-12 08:21 | NUR ---
DR. BRUMFIELD AT BEDSIDE AND 10 MG IV VALIUM GIVEN NOW. PT STILL PULLING AT IV SITES. HR REMAINS 120-130s.
--- NOTE | 2022-09-12 08:40 | NUR ---
PATIENT REMAINS 1:1 WITH THIS RN. PT CONTINUOUSLY TRYING TO GET UP, OUT OF BED, PULLING AT IV LINES, DELIRIOUSLY TALKING, HALLUCINATING. LAST CIWA WAS 22. PT REMAINS IN BUCKS TRACTION BUT IS MOVING SELF IN BED A LOT. PT ASKING TO GO OUTSIDE.
--- NOTE | 2022-09-12 09:57 | NUR ---
PATIENT NOW RESTING AND SEEMS MORE COMFORTABLE. HR IS NOW IN THE 80s. SP02 IS 91%. WILL CONTINUE TO MONITOR CLOSELY. BUCKS TRACTION REMAINS ON.
--- NOTE | 2022-09-12 11:01 | NUR ---
PT NO LONGER RESTING. PT BECOMES RESTLESS AND ATTEMPTING TO GET OUT OF BED. CIWA SCORE OF 20.HR 122. O2 97. RR 77. PT GIVEN MEDICATIONS PER EMAR.
--- NOTE | 2022-09-12 11:11 | NUR ---
PT STATES HE HAS TO URINATE. THIS RN ASSISTED PT WITH URINAL. PT UNABLE TO VOID. BLADDER SCAN SHOWED 430 IN BLADDER.
--- NOTE | 2022-09-12 12:20 | NUR ---
BECCA VILLEDA IN ROOM TO ASSESS PT
--- NOTE | 2022-09-12 13:18 | NUR ---
PATIENT CONTINUES TO BE ACTIVE IN BED, SITTING UP, REACHING FOR THINGS ON TRAY TABLE, HALLUCINATINGS WELL. PT MOST RECENTLY ASKED, "ARE THOSE BEERS TAPPED?" HE POINTED TOWARDS THE WALL. PT BEING GIVEN PRN ATIVAN AND VALIUM PER CIWA SCALE. MOST RECENT CIWA WAS 18. PT HAS SCORED HIGH ALL DAY. PT REMAINS IN BUCKS TRACTION BUT IS MOVING IN BED FREQUENTLY.
--- NOTE | 2022-09-12 14:37 | NUR ---
PTS LINENS CHANGED WITH NEO OHARA AND KEATON NASH. PT CONTINUES TO BE RESTLESS IN BED. BUCKS TRACTION REAPPLIED AT 10#. CALL LIGHT IN REACH.
--- NOTE | 2022-09-12 15:09 | NUR ---
DISCUSSED WITH DR. BRUMFIELD WHEN HE WAS IN CCU ABOUT HOW PATIENT TOLERATED FIRST DOSE OF PHENOBARBITAL. PT WAS GIVEN A FIRST TIME DOSE OF 65 MG OF PHENOBARBITAL AT 1349. PT TOLERATED WELL, BUT IS STILL NEEDING FREQ REMINDERS AND DOSING OF BENZODIAZEPINES. 2ND DOSE OF 65 MG PHENOBARBITAL GIVEN PER ORDER, AND WILL POTENTIALLY REPEAT DOSE UP TO 130 MG IN 30 MINUTES IF PATIENT IS STILL SCORING HIGH ON CIWA. PT WILL REST BRIEFLY AT TIMES, BUT WAKES UP HALLUCINATING, TRYING TO GET OUT OF BED AN DPULLING AT THINGS. PT REMAINS IN BUCKS TRACTION WITH 10# OF WEIGHT. PT REMAINS ON ROOM AND NO RESP DISTRESS HAS BEEN NOTED. IVF CONTINUE AT 125 ML/HR. PT HAS HAD FREQ INCONTINENCE OF URINE AND BED LINENS AHVE BEEN CHANGED 2-3 TIMES ALREADY THIS SHIFT. CONDOM CATH PLACED AND CONNECTED TO SUCTION - WILL SEE IF THIS IS A WORKABLE OPTION FOR PATIENT. PT HAS NOT BEEN VIOLENT OR AGGRESSIVE AT ALL, BUT HAS TRIED TO GET OUT OF BED. BED ALARM REMAINS ON AND A STAFF MEMBER HAS PATIENT IN DIRECT VISUALIZATION THE WHOLE SHIFT. WILL CONTINUE TO MONITOR CLOSELY.
--- NOTE | 2022-09-12 16:36 | NUR ---
PATIENT HAS NOW REC'D TOTAL OF 390 MG PHENOBARBITAL, 70 MG IV VALIUM, [address] BRUMFIELD BACK IN CCU AND SEES PATIENT IN BED, MOVING AROUND, PULLING AT FRACTURED LEG. PT NOW HAS A CONDOM CATH ON AND CONNECTED TO WALL SUCTION, WHICH HAS BEEN WORKING WELL. PT REPOSITIONED IN BED AGAIN AND BUCKS TRACTION REMAINS ON AT 10#. HR STILL 110-120s. LAST BP 121/96. SP02 IS 96% ON ROOM AIR.
--- NOTE | 2022-09-12 17:36 | NUR ---
PATIENT NOW RESTING. PT'S S/O ULI AT BEDSIDE AND GIVEN AN UPDATE ON PT'S ETOH W/D SYMTPOMS TODAY. HR IN THE 90s. SP02 IS 95% ON ROOM AIR. CONDOM CATH REMAINS IN PLACE AND CONNECTED TO MEDIUM WALL SUCTION.
--- NOTE | 2022-09-12 18:45 | NUR ---
CALLED TO UPDATE DR. BRUMFIELD REGARDING PATIENT'S STATUS. NO NEW ORDERS REC'D. WILL CONTINUE TO GIVE SCHEDULED 130 MG PHENOBARBITAL PER ORDER AND USE PRN VALIUM AND ATIVAN NEEDED. PRECEDEX DRIP HAS BEEN CONSIDERED TODAY AND DISCUSSED WITH MD, AND COULD BE AN OPTION IF NEEDED. WILL DISCUSS FURTHER WITH MD IF INDICATED.
[2022-09-13] VITALS (23 sets, daily range): BP systolic 16–133; BP diastolic 77–92
--- NOTE | 2022-09-13 03:46 | NUR ---
BLADDER SCANNED WITH 800 + CC URINE NOTED. DR. LA CONSULTED AND NEW ORDER FOR SANCHEZ CATH OBTAINED.
--- NOTE | 2022-09-13 06:54 | NUR ---
PT CONTINUES TO EXPERIENCE SEVERE ALCOHOL WITHDRAWLS. PT MEDICATED MULTIPLE TIMES THROUGHOUT THE NIGHT. PT ABLE TO STATE HIS NAME BUT IS UNABLE TO PROVIDE ANY OTHER INFORMATION. PT DOES NOT FOLLOW SIMPLE COMMANDS. PT MOVES ALL FOUR EXTREMITIES WITH PURPOSE. CMS INTACT X 4. PT CONTINUES TO HAVE TRACTION SPLINT ON R. SIDE. PT HAS BEEN IN A NSR TO ST, NORMOTENSIVE AND A-FEBRILE. PT NOTED TO BE EXPERIENCING URINARY RETENTION. SANCHEZ CATH PLACED. PT WITH ADEQUATE U/O THROUGHOUT THE NIGHT. LABS: K OF 3.5, MAG 1.8. PLTS CONTINUES TO REMAIN AT 79.
--- NOTE | 2022-09-13 09:01 | NUR ---
REPORT REC'D FROM ERMIAS LARSON AND PLAN OF CARE RESUMES WITH PATIENT. PATIENT IS RESTING IN BED AND SLEEPING UPON INITIAL ASSESSMENT. PT AWAKENS TO TACTILE STIMULI AND IS HARD TO UNDERSTAND. PT ON 2 L NC AND SP02 IS 100% ON THIS. TURNED OFF OXYGEN AND WATCHING SP02 LEVELS. AFTER HELPING PATIENT GET A DRINK OF WATER AND HE CLEARS HIS THROAT, BETTER ABLE TO UNDERSTAND HIS SPEECH, ALTHOUGH STILL GARBLED SOME. PT IS ALERT TO SELF, , YEAR AND EVENT, BUT UNSURE OF PLACE OR SURROUNDINGS AND EXACT DATE. PT BOOSTED UP IN BED AND BUCKS TRACTION REMAIN AT 10#. PT ABLE TO DRINK APPLE JUICE WITH MIRALAX THIS AM. IVF CONTINUE AT 125 ML/HR. SCHEDULED PHENOBARBITAL GIVEN. PT STILL TREMULOUS WHEN MOVING HANDS AT ALL. PT DENIES PAIN IN RIGHT HIP. ICE PACK REAPPLIED. CMS INTACT ON BOTH LEGS. PT FOLLOWING COMMANDS MORE COOPERATIVE THAN YESTERDAY. BED ALARM TO STAY ON FOR SAFETY.
--- NOTE | 2022-09-13 10:43 | NUR ---
DR. BRUMFIELD IN TO SEE PATIENT. PLAN OF CARE DISCUSSED. PT TO RECEIVE 2ND UNIT OF PLATELETS TODAY.
--- NOTE | 2022-09-13 10:48 | NUR ---
PATIENT MORE AWAKE AND OFFERED SOME BREAKFAST. PT ABLE TO TAKE A FEW BITES OF HIS EGGS AND DRINK SOME MILK, BUT THEN STARTS TO DOZE OFF AGAIN. PT NOW RESTING WITH HR 100. SP002 IS 96% ON 1 L NC. IV MAG STARTED PER EMAR. URINE OUTPUT IS LOW - MD AWARE.
--- NOTE | 2022-09-13 11:18 | NUR ---
2ND UNIT OF PLATELETS STARTED AT 1115 INTO LEFT FOREARM IV SITE AT 120 ML/HR FOR THE FIRST 30 ML. THIS RN AT BEDSIDE WITH PATIENT.
--- NOTE | 2022-09-13 12:38 | NUR ---
BECCA BENJAMIN PA IN TO SEE PATIENT. PLAN OF CARE REVIEWED WITH HER, INCLUDING THE INFUSION OF PLATELETS. PT CONTINUES TO DO WELL, CIWA IS MUCH LOWER TODAY (7 LAST) AND IS RESTING. SANCHEZ DRAINING CONCENTRATED URINE. INFUSION OF PLATELETS NOW FINISHED. DECREASED URINE OUTPUT REMAINS. IVF CONTINUE AT 125 ML/HR. BUCKS TRACTION REMAINS. PT BOOSTED IN BED AND NEW DRAW SHEET PLACED UNDERNEATH. PT FALLS BACK ASLEEP AFTER INTERVENTIONS. PT LOOKS AT CLOCK AND STATES, "IT'S 12:30?" AND WAS CORRECT ON THE TIME.
--- NOTE | 2022-09-13 13:00 | NUR ---
Pt sleeping soundly. Not awakened. Update from Rn, he is clearing somewhat. Tenative plan for surgery on Sunday.
--- NOTE | 2022-09-13 13:59 | NUR ---
PATIENT MORE AWAKE AT THIS TIME AND CONVERSIVE WITH THIS RN. PT ASKING ABOUT "THIS CATHETER" THAT HE HAS. DISCUSSED SANCHEZ WITH PATIENT. HE HAS NOT BEEN PULLING ON IT. PT POINTING TO CLOCK AND STATES, "I DON'T NORMALLY SLEEP THIS LONG." ENCOURAGED PATIENT TO CONTINUE TO REST, HE CANNOT BE OUT OF BED AT THIS TIME BUT TURNED ON TV FOR HIM. PT INFORMED OF UPCOMING ABDOMINAL U/S. GUIAC TO BE DONE WELL.
--- NOTE | 2022-09-13 14:46 | NUR ---
NEO OHARA INFORMED ME PT IS IN DT'S, MAY OR MAY NOT RESPOND. PT OPENED HIS EYES UPON HEARING MY VOICE AND TRIED TO TRACK WHERE I WAS WITH HIS EYES. REWPONCES BY PT WERE MOSTLY JUST MUMBLING, BUT HE DID REACH OUT HOS HAND TO SHAKE MINE AND POINTED TO HIS RIGHT HIP WHEN ASKED IF HE HAD PAIN. PRAYED FOR PT, WILL FOLLOW NEEDED
--- NOTE | 2022-09-13 15:09 | NUR ---
PATIENT GIVEN A BED BATH AND TOLERATED FAIR. URINE OUTPUT SEEMS TO HAVE PICKED UP AND IS LESS CONCENTRATED. U/S OF ABDOMEN TO OCCUR. GUIAC WAS PERFORMED BUT NO STOOL PRESENT WHEN RECTAL EXAM WAS DONE. BED ALARM REMAINS ON FOR SAFETY.
--- NOTE | 2022-09-13 15:25 | NUR ---
U/S TECH IN ROOM AT THIS TIME EVALUATING HIM. UPDATE GIVEN TO DR. BRUMFIELD WHEN HE WAS IN CCU. CONTINUE TO MONITOR.
--- NOTE | 2022-09-13 17:04 | NUR ---
BECCA KELLY CALLED CCU AND DISCUSSED FINDINGS ON ABD U/S. CHEST XRAY ORDERED WELL HIP XRAY. PT AWAKE, AND EATING HIS DINNER RIGHT NOW. HIS S/O [facility]LI HAS SHOWN UP AND AN UPDATE GIVEN.
--- NOTE | 2022-09-13 17:28 | NUR ---
CHEST XRAY AND HIP XRAY COMPLETE. PT TOLERATED WELL. PT TRYING TO FINISH HIS DINNER.
--- NOTE | 2022-09-13 19:57 | NUR ---
PT ASSESSED AND FOUND TO BE SITTING IN BED. PT IS MORE ORIENTED AND FOLLOWS SIMPLE COMMANDS. PT WITH NO COMPLAINTS AT THIS TIME. V/S ASSESSED AND ALARM LIMITS SET. BED ALARM SET. PT WITH NO QUESTIONS OR CONCERNS. CMS INTACT X 4. TRACTION SPLINT IN PLACE. PIVS PATENT.
--- NOTE | 2022-09-13 20:49 | NUR ---
SANCHEZ CATH CLEANED WITH CHG WIPE.
[2022-09-14] VITALS (15 sets, daily range): BP systolic 112–150; BP diastolic 77–96
--- NOTE | 2022-09-14 06:31 | NUR ---
PT APPEARS TO BE MORE AWAKE BUT ONLY ORIENTED TO PERSON AND PLACE. PT FOLLOWS SIMPLE COMMANDS BUT CONTINUES TO PULL AT LINES AND TAKE OFF HOSPITAL GOWN. PT ABLE TO MOVES ALL FOUR EXTREMITIES WITH PURPOSE. CMS INTACT X 4. TRACTION SPLINT REMAINS IN PLACE. PT HAS BEEN IN A NSR, NORMOTENSIVE AND A-FEBRILE. PT WITH ADEQUATE U/O. LAST BM NOTED ON 09/09. PT CONTINUES TO RECIEVE MEDICATION FOR BOWEL REGIMENT. LABS NA 134, K 2.7, AND PLT IMPROVED TO 99. DR. BRUMFIELD NOTIFIED AND NEW ORDERS OBTAINED FOR K REPLACEMENT.
--- NOTE | 2022-09-14 08:00 | NUR ---
Spoke with Dr. Mcdonnell. He plans on surgery for this pt tomorrow.
--- NOTE | 2022-09-14 08:59 | NUR ---
ASSESSMENT COMPLETE - PT DROWSY BUT WAKES EASILY. CIWA SCORE 3. GARBLED SPEECH WITH SLOW HAND MOVEMENT WITH SOME DISCORDINATION OF HANDS WHILE ATTEMPTING TO EAT BREAKFAST, PATIENT FINANCIAL COUNSELOR STRENGTH EQUAL. WET COUGH NOTED, CORNET AND IS USED WITH COUGH PRODUCED. ENCOURAGED DEEP BREATHING. REPOSISTIONED IN BED. CMS INTACT OF LOWER RIGHT LEG, TRACTION REMAINS IN PLACE. PT RATES PAIN 0 AT THIS TIME. IV SITE PATENT X2. AWAITING PLATLETS TO BE READY FROM LAB.
--- NOTE | 2022-09-14 09:40 | NUR ---
Update from Rn. Pt better today, able to feed self.
--- NOTE | 2022-09-14 09:58 | NUR ---
IN ROOM ROUNDING ON PT - POC DISCUSSED, FURTHER DOSES OF PHENOBARBITAL TO DECREASE, AWAITING PLATLETS FROM LAB.
--- NOTE | 2022-09-14 10:59 | NUR ---
RN ROUNDING ON PT - RESTING WITH EYES CLOSED IN BED WITH HOB ELEVATED. VS STABLE ON MONITOR. CMS IN TACT IN RIGHT LOWER EXT. SANCHEZ CATH DRIANING URINE.
--- NOTE | 2022-09-14 12:18 | NUR ---
unit 1 of 2 platlets started, vs stable without reaction. Pt resting in bed watching tv but drowsy. Improving with gross motor skills eating lunch with moderate assistance.
--- NOTE | 2022-09-14 13:00 | NUR ---
UNIT 2 OF PLATLETS INFUSING, VS STABLE.
--- NOTE | 2022-09-14 16:14 | NUR ---
ASSESSMENT COMPLETE - NO CHANGES. CMS REMAINS INTACT. PT HAD SMALL BM. PT NEGATIVE FOR NEED FOR PRN ATIVAN PER CIWA SCORE. BED BATH COMPLETE - LINEN CHANGE. PT TOLERATED ROLLING WITH MODERATE PAIN, NO NEED FOR MED COVERAGE.
--- NOTE | 2022-09-14 16:20 | NUR ---
PATIENT RESTING IN BED, WOKE TO VOICE. BEDBATH AND SANCHEZ CARE PROVIDED. LINEN CHANGED. PATIENT WAS INCONTINENT OF STOOL, CLEAN BRIEF ON. CALL LIGHT IN EASY REACH. BED ALARM ON FOR SAFETY
--- NOTE | 2022-09-14 18:23 | NUR ---
PT SITTING UP IN BED SLOWLY FEEDING SELF DINNER, IMPROVED GROSS MOVEMENT. PT DECLINES RN HELP IN FEEDING. DENIES FURTHER NEEDS.
[2022-09-15] VITALS (12 sets, daily range): BP systolic 95–134; BP diastolic 65–99
--- NOTE | 2022-09-15 01:35 | NUR ---
PATIENT IS RESTING IN BED. AFTER PAIN MEDICATIONS HAVE BEEN ADMINISTERED.
--- NOTE | 2022-09-15 04:53 | NUR ---
PATIENT IS RESTING IN BED. NO COMPLAINTS
--- NOTE | 2022-09-15 07:47 | NUR ---
REPORT RECEIVED FROM JESUS LARSON. PT IS RESTING IN BED WITH EYES CLOSED, HR 70'S SINUS RHYTHM, RR 15, SPO2 100% ON 2L/O2.
--- NOTE | 2022-09-15 08:49 | NUR ---
PT TO SURGERY WITH WORKING FOREMAN.
--- NOTE | 2022-09-15 10:35 | NUR ---
PT ARRIVES FROM OR WITH ANESTHESIA, STABLE ATTENDANT AND COURT REGISTRY OFFICER. PT IS AWAKE AND ANSWERS QUESTIONS APPROPRIATELY. DENIES PAIN AT THIS TIME. VSS, PT IS ON 4L/O2 WITH SPO2 100%, RR EVEN AND UNLABORED RR 16.
--- NOTE | 2022-09-15 11:02 | NUR ---
NEO MERCER INFORMED ME PT HAS BEEN TAKEN TO OR FOR SURGERY. WILL FOLLOW
--- NOTE | 2022-09-15 12:30 | NUR ---
Update from Rn. Pt has returned from surgery and is sleeping. Not awakened.
--- NOTE | 2022-09-15 12:42 | NUR ---
PT AND HIS GIRLFRIEND GIVEN DISCHARGE INSTRUCTIONS. IV X2 DCD WITH CATHETER TIP INTACT. THEY BOTH VERBALIZE UNDERSTANDING OF INSTRUCTIONS, PLAN TO FOLLOWUP WITH TRAV ON , GIRLFRIEND AWARE OF APPOINT. ESCORTED OUT VIA WC TO HOME WITH GIRLFRIEND.
--- NOTE | 2022-09-15 18:53 | NUR ---
PT HAS JUST FINISHED MOST OF HIS DINNER, STATES "MY APPETITE IS BACK", HAS BEEN TALKING WITH GIRLFRIEND. DENIES NEEDS, DENIES PAIN AT THIS TIME.
[2022-09-16] VITALS (7 sets, daily range): BP systolic 101–139; BP diastolic 72–91
--- NOTE | 2022-09-16 03:40 | NUR ---
PATIENT IS SB WENT LOW 47 BEATS PER MINUTE. BLOOD PRESSURE IS 120/75 89L. PATIENT IS EASILY AROUSABLE.
--- NOTE | 2022-09-16 07:34 | NUR ---
REPORT RECEIVED FROM JESUS LARSON. PT IS RESTING IN BED WITH EYES CLOSED, RESP EVEN AND UNLABORED, HR 70'S.
--- NOTE | 2022-09-16 09:29 | NUR ---
PHYSICAL THERAPIST IN WORKING WITH PT
--- NOTE | 2022-09-16 09:43 | NUR ---
PT GIVEN PRN PAIN MEDS FOR WORKING WITH PT, RATES PAIN 2/10 AT REST AND 4/10 WITH MOVEMENT IN RIGHT HIP.
--- NOTE | 2022-09-16 10:30 | NUR ---
PT WORKED WITH PT, WALKED A SHORT DISTANCE THEN ASSISTED TO SIT UP IN CHAIR WITH CALL LIGHT IN HAND.
--- NOTE | 2022-09-16 11:00 | NUR ---
PT ASSISTED BACK TO BED WITH PT, CALL LIGHT IN REACH.
--- NOTE | 2022-09-16 12:30 | NUR ---
LUNCH BROUGHT IN TO PT, PT HAS NO REQUESTS AT THIS TIME. IS GETTING STRONGER AND ABLE TO MOSTLY FEED HIMSELF NOW ALTHOUGH IT IS SLOW.
--- NOTE | 2022-09-16 14:15 | NUR ---
PT RESTING IN BED WITH EYES CLOSED, RESP EVEN AND UNLABORED.
--- NOTE | 2022-09-16 15:56 | NUR ---
PT RESTING IN BED, WATCHING TV AND DOZING OFF AND ON, ASSESSMENT UNCHANGED FROM PREVIOUS. DENIES NEEDS, DENIES PAIN, SCHEDULED MEDS GIVEN.
--- NOTE | 2022-09-16 16:13 | NUR ---
PAIN MEDICATION GIVEN PER PT REQUEST- 10MG OXYCODONE. GIRLFRIEND IN TO VISIT PT.
[2022-09-17] VITALS (7 sets, daily range): BP systolic 96–133; BP diastolic 65–85
--- NOTE | 2022-09-17 03:37 | NUR ---
PATIENT HAS STATED THAT THE ICE MACHINE IS TOO COLD. IT IS KEEPING HIM FROM GETTING REST. REMOVED PER PATIENT REQUEST
--- NOTE | 2022-09-17 04:41 | NUR ---
PATIENT IS RESTING IN BED. NO COMPLAINTS OF PAIN
--- NOTE | 2022-09-17 05:59 | NUR ---
CRITICAL LAB VALUE REPORTED OF K OF 2.[address] OR [address] GARDNER TO GIVE 40 meq IV STAT. ORDERS PLACED IN [facility] AND CARRIED OUT.
--- NOTE | 2022-09-17 07:36 | NUR ---
REPORT RECEIVED FROM JESUS RN, CARE OF PATIENT ASSUMED AT THIS TIME. PATIENT IS RESTING COMFORTABLY IN BED, LYING ON BACK. REPORTS PAIN IS 8/10, WAS RECENTLY MEDICATED. DENIES ANY NEEDS AT THIS TIME. CALL LIGHT IN REACH.
--- NOTE | 2022-09-17 08:33 | NUR ---
PATIENT NOTED TO HAVE TEMP OF 100.5, ENCOURAGED USE OF ACCAPELA DEVICE, PATIENT USED CORRECTLY IN FRONT OF THIS RN. EDUCATED ABOUT INCREASED RISK FOR PNEUMONIA DUE TO RECENT SURGERY, ETOH WITHDRAWAL, AND INACTIVITY. PATIENT AGREEABLE TO USE DEVICE. DENIES ANY OTHER NEEDS. BREAKFAST TRAY AT BEDSIDE, PATIENT REPORTS HE WILL EAT LATER.
--- NOTE | 2022-09-17 09:00 | NUR ---
PATIENT WORKING WITH PT CURRENTLY. DENIES ANY NEEDS. CALL LIGHT IN REACH.
--- NOTE | 2022-09-17 09:17 | NUR ---
CRYOCUFF PLACED ON PATIENT
--- NOTE | 2022-09-17 09:59 | NUR ---
PATIENT RESTING ON BACK, DENIES ANY NEEDS, FAMILY AT BEDSIDE. CALL LIGHT IN REACH. USING ACCAPELLA.
--- NOTE | 2022-09-17 11:05 | NUR ---
PATIENT REQUESTS BLANKETS FROM HIS COUCH, THESE WERE PROVIDED. DENIES ANY ADDITIONAL NEEDS.
--- NOTE | 2022-09-17 11:34 | NUR ---
BECCA BENJAMIN PA-C, HAS SEEN PATIENT. REPORTS HE WILL LIKELY D/C TOMORROW.
--- NOTE | 2022-09-17 11:52 | NUR ---
PATIENT RESTING IN BED, PROVIDED LUNCH TRAY. DENIES ANY OTHER NEEDS AT THIS TIME.
--- NOTE | 2022-09-17 13:08 | NUR ---
REPORT RECEIVED PT MOVED TO MED-SURG FROM CCU. SITTING UP IN A CHAIR COMPANY WITH HIM. CALL LIGHT, FRESH WATER AND NEEDED ITEMS TO CHAIRSIDE. PT DENIES FURTHER NEEDS OF
--- NOTE | 2022-09-17 15:29 | NUR ---
PT MOVES FROM CHAIR TO BED TO REST. 2 PERSON ASSIST. CALL LIGHT AND NEEDED ITEMS IN REACH. PT RATES PAIN 6/10 DENIES NEED OF PAIN MED AT THIS TIME
--- NOTE | 2022-09-17 17:32 | NUR ---
PT RESFUSES EVENING MEAL STATES HIS FAMILY ARE BRING FOOD FOR HIM. PT ABLE TO VOID WITHOUT DIFFICULTY.
--- NOTE | 2022-09-17 19:12 | NUR ---
SHIFT REPORT RECEIVED FROM IDALMIS RN, PT APPEARS TO SLEEP, RESP EVEN AND REG.
--- NOTE | 2022-09-17 20:57 | NUR ---
RN TO ROOM FOR ASSESSMENT, PT ATTEMPTING TO PUT LID ON URINAL, RN ASSIST, PT NOTED TO HAVE MISSED URINAL AND ALSO INCONTINENT, PT C/O RIGHT HIP PAIN 5/10, RIGHT LEG REPOSITIONED, PT OFFERED PAIN MED AND AGREES, PT MEDICATED WITH OXYCODONE 10MG AND RT NEURONTIN, VS AND ASSESSMENT DONE, DISCUSSED USE OF HEEL PROTECTORS AND ICE BAG TO HIP, PT AGREES, PLAN TO WAIT A FEW MINUTES FOR PAIN MED TO START TO WORK PRIOR TO CHANGING UNDERPAD, IV PATENT AND INFUSING IN LEFT HAND, SITE REINFORCED WITH TAPE. PT NOTED TO BE WEAK WITH SLOW PURPOSEFUL MOVEMENTS, SOME DIFFICULTY NOTED WITH BRINGING SODA TO MOUTH TO TAKE A DRINK, PT UNSURE IF IT IS DAY OR NIGHT, PT REORIENTED TO TIME, OTHERWISE ORIENTED.
--- NOTE | 2022-09-17 21:15 | NUR ---
RN TO ROOM WITH EMMA RN TO ASSIST WITH REPOSITIONING AND CHANGE OF LINEN, PT TURNED SIDE TO SIDE, NOTED ECCYMOTIC SCOTAL AREA, SOFT TISSUE, RIGHT HIP DRESSING LEAKAGE OF LIGHT BROWNISH RED FLUID, REINFORCED WITH ABDS, ICE BAG TO RIGHT HIP AND RIGHT THIGH, HEEL PROTECTORS PLACED ON PT, PT WITH GOOD COUGH TO CLEAR SECRETIONS, EMMA RN DISCUSSED IMPORTANCE OF REHAB AND INCREASING ACTIVITIY, PT SEEMS FAIRLY RECEPTIVE. HOB ELEVATED APPROX 30 DEGREES, SIDE RAIL UP. PT GIVEN CALL LIGHT AND ENCOURAGED TO CALL NURSE WITH ASSIST WITH THE URINAL.
--- NOTE | 2022-09-17 23:00 | NUR ---
PT APPEARS TO BE SLEEPING, RESP EVEN AND REG, IVF INFUSING WELL PER ORDER.
--- NOTE | 2022-09-18 00:05 | NUR ---
PT APPEARS TO SLEEP, RESP EVEN AND REG, WITHOUT DISTRESS.
--- NOTE | 2022-09-18 01:30 | NUR ---
PT AWAKE, ALERT, REQUESTING HELP TO PUT CAP ON URINAL, RECENTLY VOIDED, CHUX AND ATTENDS FEEL DRY, PT STATES HE IS CURRENTLY NOT HAVING ANY PAIN, REINFORCED DRESSING TO RIGHT HIP APPEARS DRY, ICE REMAINS TO HIP AND RIGHT THIGH, PT GIVEN SODA PER REQUEST, PT SEENS MORE AWAKE, STATES HE WOULD LIKE TO BE OFFERED PAIN MED APPROX 0300, THEN HIS GOAL IS TO TRY GETTING UP. PT RESTING WITHOUT OTHER REQUESTS, IV PATENT AND INFUSING WELL.
--- NOTE | 2022-09-18 03:15 | NUR ---
PT AWAKEN PER EARLIER REQUEST TO OFFER PAIN MEDICATION, PT STATES HE IS FEELING A LOT BETTER NOW AND IS SO HAPPY FOR THIS, PT DESIRES TO TAKE ONLY 1 OXYCODOME 5MG TABLET TO KEEP HIM IN PAIN CONTROL, PT STATES HE WILL GET UP THE NEXT TIME HE NEEDS TO VOID. NEW ABD TO REINFORCE DRESSING, SMALL AMOUNT LIGHT BROWN DRAINAGE NOTED, ICE TO RIGHT HIP AND THIGH, PEDEL PULSES RIGHT FOOT STRONG, GOOD MOVEMENT NOTED IN FOOT, HEEL PROTECTORS REMAIN IN PLACE, IV PATENT AND INFUSING WELL. ENCOURAGED PT TO CALL WHEN HE IS READY TO GET UP OR FOR OTHER NEEDS.
--- NOTE | 2022-09-18 04:22 | NUR ---
PT ASLEEP, RESP EVEN AND REG, NEW BAG OF NS HUNG AND INFUSING WELL PER ORDER,
[2022-09-18 05:35] VITALS: BP 136/91
--- NOTE | 2022-09-18 05:35 | NUR ---
PT AWAKEN, LAB IN FOR AM BLOOD DRAW, VS COMPLETED AFTER BLOOD DRAW.
--- NOTE | 2022-09-18 06:00 | NUR ---
PT ASSISTED UP TO BSC, WITH TOE TOUCH ON RIGHT LEG, USED WALKER AND RN ASSIST TO STAND AND PIVOT TO BSC, PT WEAK AND A BIT SHAKEY BUT GOOD EFFORT, PT VOIDED AND HAD MEDIUM SOFT BROWN STOOL TESTING GUIAC NEG, PT TRANSFERED BACK TO BED, ASSESSMENT COMPLETED, IV PATENT, SITE REINFORCED WITH TAPE, RIGHT HIP DRAINAGE LIGHT BROWNISH RED, NEW ABD DRSG TO SITE, FRESH ICE BAG TO RIGHT HIP AND THIGH (BOTH WRAPPED IN TOWELS), PT RESTING WATCHING TV, WITHOUT REQUESTS AT THIS TIME.
--- NOTE | 2022-09-18 07:20 | NUR ---
PT RESTING EYES CLOSED AT TIME OF SHIFT REPORT. LEFT UNDISTURBED. CALL LIGHT AND FRESH H20 AT BEDSIDE
--- NOTE | 2022-09-18 09:20 | NUR ---
PT SITS ON EDGE OF BED FOR MORNING MEAL EATS MOST ALL OF IT. RESTING IN BED NOW ANTICIPATES THERAPY SOON. OXY 5 MG GIVEN WITH MORNING MEAL ALONG WITH SCHEDULED MEDS FOR PAIN. PT VERBALIZES INTENT TO WORK HARD WITH P/T SO HE CAN GO HOME.
--- NOTE | 2022-09-18 09:22 | NUR ---
DRESSING TO RIGHT HIP SATURATED WITH SEROSANG FLUID. CHANGED TO FRESH DRESSING. INCISION INTACT AND WELL APPROXIMATED NO REDNESS OR OTHER
--- NOTE | 2022-09-18 09:40 | NUR ---
IN TO SEE PATIENT REGARDING HIS POSSIBLE DISCHARGE TODAY. DISCUSSED WITH PATIENT OBTAINING A WALKER AND CANE AT [facility] AFTER DISCHARGE . PATIENT IS AGREEABLE. WILL COMPLETE AND FAX THE REQUEST.
--- NOTE | 2022-09-18 09:48 | NUR ---
PATIENT UP TO CHAIR WITH 1-2PA AND FWW. PHYSICAL THERAPIST CONTINUES TO WORK WITH PATIENT.
--- NOTE | 2022-09-18 10:05 | NUR ---
SPOKE WITH GURPREET IN PT. GURPREET STATES THAT PATIENT IS NOT CLEARED FOR DISCHARGE AT THIS TIME. PATIENT LIVES IN A TRAILER WITH 2 STEPS AND HE IS UNABLE TO COMPLETE THE STAIR AT THIS TIME. WILL DISCUSS FURTHER DISCHARGE PLAN WITH DR. MARTINEZ WHEN HE IS AVAVILABLE.
[2022-09-18 10:18] VITALS: BP 115/87
--- NOTE | 2022-09-18 10:19 | NUR ---
PT WORKS WITH P/T. SITTING IN THE CHAIR NOW DOING HOME EXERCIZE IS PRESENT IN THE ROOM.
--- NOTE | 2022-09-18 12:40 | NUR ---
PT TOLERATES 100% OF NOON MEAL. REAMINS UP IN THE CHAIR THIS SHIFT. PAIN MED ADMINISTERED P/T TO BE HERE AROUND 1300. CALLL LIGHT IN LAP PT DENIES NEEDS OF
--- NOTE | 2022-09-18 13:15 | NUR ---
SPOKE WITH JUSTINO S PAC REGARDING PT CONCERNS. JUSTINO STATES SHE WILL SPEAK TO THE PATIENT DURING HER VISIT ABOUT PLACEMENT OPTIONS IF HE IS UNABLE TO MAKE PROGRESS WITH PT. APPLICATION FOR [employer] FAXED.
--- NOTE | 2022-09-18 13:34 | NUR ---
WALKING PAST PT ROOM OBSERVED PT WALKING TOWARDS THE BATHROOM USING HIS FWW. IV LINE STRETCHED, BUT STILL INFUSING NOT DISLODGED. ASSISTED PT TO RETURN TO HIS BED AND ENCOURAGED HIM TO NOT GET UP UNATTENDED. BED ALARM SET
--- NOTE | 2022-09-18 13:56 | NUR ---
PT WORKING WITH P/T
--- NOTE | 2022-09-18 14:08 | NUR ---
Antonella CURTIS IN WORKING WITH PT, WILL CHECK BACK
[2022-09-18 14:21] VITALS: BP 134/88
--- NOTE | 2022-09-18 14:21 | NUR ---
PT RETURNS TO RESTING IN BED AFTER P/T. OXY GIVEN 5MG ICE TO LEG
--- NOTE | 2022-09-18 15:16 | NUR ---
PT RESTING IN BED USING HIS PHONE, STATES HE IS STILL PRETTY PAINFUL. GABAPENTIN ADMINISTERED ORDERED
[2022-09-18 18:28] VITALS: BP 130/84
--- NOTE | 2022-09-18 19:49 | NUR ---
REPORT RECEIVED FROM DAY SHIFT RN. PT UP TO BSC TO HAVE XL SOFT BM. BACK TO BED WITH FWW AND TDWB RIGHT HIP. ICE PACK TO HIP. NO FURTHER NEEDS. WHITE BOARD UPDATED. CALL LIGHT IN REACH. BED ALARM FOR SAFETY.
[2022-09-18 19:54] VITALS: BP 135/89
--- NOTE | 2022-09-18 20:36 | NUR ---
BED ALARM SOUNDING, WAS TRYING TO PHONE TRIAGE SPECIALIST CANDY OFF THE FLOOR. ASSISTED, NO OTHE NEEDS, BED ALARM PLACED. STATES HOW TO CALL STAFF IF HE NEEDS HELP.
--- NOTE | 2022-09-18 20:55 | NUR ---
EVENING ASSESSMENT COMPLETE. SCHEDULED MEDS ADM IN PER EMAR. PT REPORTS RIGHT HIP PAIN TOLERABLE /. DENIES NAUSEA. RIGHT HIP DRESSING INTACT. ICE PACKS PROVIDED. CMS INTACT BILAT. HEEL PROTECTORS IN PLACE. PT DENIES FURTHER NEEDS. BED ALARM FOR SAFETY. CALL LIGHT IN CATHY.
--- NOTE | 2022-09-18 23:06 | NUR ---
PT RESTING IN BED WITH EYES CLOSED. RESPIRATIONS EVEN. CALL LIGHT IN REACH. BED ALARM FOR SAFETY.
--- NOTE | 2022-09-19 01:24 | NUR ---
URINAL EMPTIED OF 250 ML YELLOW URINE. PT REPORTS RIGHT HIP PAIN 08/02. PRN FOR PAIN ADMIN PER EMAR. FRESH ICE PACKS TO RIGHT HIP. LIGHTS OUT PER REQUEST. NO FURTHER NEEDS. BED ALARM FOR SAFETY. CALL LIGHT IN REACH.
--- NOTE | 2022-09-19 03:47 | NUR ---
PT RESTING IN BED WITH EYES CLOSED. HOB ELEVATED. RESPIRATIONS EVEN. CALL LIGHT IN REACH. BED ALARM FOR SAFETY.
[2022-09-19 05:47] VITALS: BP 111/79
--- NOTE | 2022-09-19 06:08 | NUR ---
LAB IN ROOM FOR MORNING DRAW. VS AND I&O OBTAINED. PT INCONTINENT OF URINE WELL. PT STOOD AT SIDE OF BED. SERAFIN CARE DONE, NEW LINES AND ATTENDS IN PLACE. PT BACK TO BED, MODESTA WELL. REPORTS RIGHT HIP PAIN 5/10. PRN FOR PAIN ADMIN PER EMAR. FRESH ICE PACKS TO RIGHT HIP AND THIGH. DRESSING SATURATED WITH SEROSANG DRAINAGE. UNABLE TO OBTAIN NEW DRESSING AT THIS TIME PER RAIL CAR LOADER. PT DENIES FURTHER NEEDS. BED ALARM ON. CALL LIGHT IN REACH.
--- NOTE | 2022-09-19 07:02 | NUR ---
REPORT RECEIVED FROM NEO MCDERMOTT. PT RESTING IN BED WITH EYES CLOSED. RIGHT HIP STRAIGHT AND FLAT IN BED. HEAD OF BED AT 15 DEGREES. RESPIRATIONS EVEN AND UNLABORED. PT ALLOWED TO REST. CALL LIGHT WITHIN REACH. BED RAILS UP. BED ALARM ON.
--- NOTE | 2022-09-19 07:24 | NUR ---
THIS RN TO ROOM WITH DR MARTINEZ FOR ROUNDS. DRESSING TO RIGHT HIP SATURATED WITH SEROUS ANGUINOUS DRAINGE. VERBAL ORDERS GIVEN TO CHANGE DRESSING. PT REPORT 0/10 PAIN WHILE RESTING AND DENIES NEED FOR PAIN MEDICAITON. NO ADDITIONAL REQUESTS OR COMPLAINTS. CALL LIGHT WITHIN REACH. BED RAILS UP.
--- NOTE | 2022-09-19 07:35 | NUR ---
MORNING ASSESSMENT AND MEDICATION DUE. PT AWAKE, ALERT AND WATCHING TV. PT REPORTS 0/10 PAIN WHILE RESTING. PT REPORTS 5/10 PAIN WITH ACTIVITY. SEE MAR FOR MEDICATION GIVEN. PT UP TO CHAIR WITH 1 PERSON ASSIST AND FWW. PT MOVES SLOWLY WITH TOE TOUCH ONLY TO RIGHT LEG. PT ALERT AND OREINTED TO ALL. LUNG SOUNDS CLEAR. HEART TONES REGULAR. NO TREMORS SEEN. IV DRESSING LOOSE, CHANGED PER PROTOCOL. IV FLUSHED AND SALINE LOCKED WITH ALCOHOL CAP APPLIED. CMS INTACT WITH STRONG PEDIAL AND TIBIAL PULSES. STRONG PLANTAR AND DORSI FLEXION SEEN. PT ABLE TO USE LEFT LEG TO SUPPORT AND MOVE RIGHT LEG WHEN GETTING UP FROM BED. DRESSING TO RIGHT HIPS SATURATED WITH RED FLUID. CHANGED PER MD ORDER. CRISTIAN INTACT TO INCISION WITH EDGES WELL APROXIMATED. MINIMAL GENERALIZED EDEMA CONTINUES TO RIGHT LOWER EXTREMITIY AND HIP. BOWEL TONES ACTIVE. ABDOMEN SOFT AND NON TENDER. PT UP TO CHAIR EATING BREAKFAST. NO ADDITIONAL REQUESTS OR COMPLAINTS. CHAIR ALARM ON. CALL LIGHT WITHIN REACH. ICE PACK IN PLACE TO RIGHT HIP. PT DEMONSTRATES USE OF I.S. REACHIGN 2500ML X5.
--- NOTE | 2022-09-19 09:20 | NUR ---
THIS RN TO ROOM TO CHECK ON PT. PT WORKING WITH PYSICAL THERAPY. PT REPORTS 4-5/10 PAIN WITH ACTIVITY, PT REPORTS HE WOULD LIKE PAIN MEDICATION "ONCE I'M BACK TO MY ROOM." PT DECLINES MEDICATION AT THIS TIME. NO ADDITIONAL REQUESTS OR COMPLAINTS.
--- NOTE | 2022-09-19 10:06 | NUR ---
THIS RN TO ROOM TO CHECK ON PT. PT BACK FROM WORKING WITH PHYSICAL THERAPY. PT REPROTS 8/10 PAIN IN RIGHT HIP AT THIS TIME. SEE MAR FOR MEDICATION GIVEN. PT REMAINS UP TO CHAIR. FRESH ICE PACK PROVIDED. ICE WATER REFILLED. NO ADDITIONAL REQUESTS OR COMPLAINTS. CALL LIGHT WITHIN REACH.
--- NOTE | 2022-09-19 10:26 | NUR ---
SPOKE TO PATIENT ABOUT THE DISCHARGE PLAN. PATIENT STATES HE FEELS DISCOURGED AND A LITTLE DEPRESSED TODAY. PATIENT STATES" HE THOUGHT IT WOULD GO BETTER WHEN HE WAS WORKING WITH PT" PATIENT IS WORRIED ABOUT BEING DISCHARGED SOON. PATIENT HAS A SUPPORTIVE LIFE PARTNER WHO WILL HELP NEEDED WHEN DISCHARGED. CASE MANAGEMENT ARRANGED A FRONT WHEEL WALKER AND A CANE TO BE AVAILABLE ON DISCHARGE FROM [facility].
[2022-09-19 10:34] VITALS: BP 116/74
--- NOTE | 2022-09-19 11:05 | NUR ---
HOURLY ROUNDING: PT REMAINS UP TO CHAIR. PT TEARFUL AT TIMES REPORTING HE WISH HE COULD HEAL FASTER. THERAPUTIC COMMUNICATION CONVERSATION HELD WITH PT WITH ENCORURAGEMENT. PT REPORTS HIS PAIN IS WELL CONTROLLED 0/10 WHILE RESTING. 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 PT REPORTS GREATFULNESS FOR THE CARE HE HAS RECEIVED. NO ADDITIONAL REQUESTS OR COMPLAINTS. CALL LIGHT WITHIN REACH. CHAIR ALARM ON.
--- NOTE | 2022-09-19 12:20 | NUR ---
LUNCH DELIVERED TO PT. PT REMAINS UP TO CHAIR, EATING LUNCH. REPORTS PAIN REMAINS WELL CONTROLLED. PT DENIES ADDITIONAL REQEUSTS OR COMPLAINTS. CALL LIGHT WITHIN REACH. CHAIR ALARM ON.
[2022-09-19 13:09] VITALS: BP 108/71
--- NOTE | 2022-09-19 13:29 | NUR ---
AFTERNOON ASSESSMENT AND MEDICATION DUE. PT REMAINS UP TO CHAIR. PT RESTING WITH EYES CLOSED. PT REPORTS 0/10 WITH REST, 7/10 WITH ACTIVITY. MEDICATION GIVEN IN ANTICIPATION OF PHYSICAL THERAPY. LUNG SOUNDS CLEAR HEART TONES REGULAR. PT REMAIS ALERT AND OREINTED TO ALL. CMS INTACT WITH NORMAL SENSATION, STRONG TIBIAL AND PEDIAL PULSES AND STRONG PLANTAR AND CIRO FLEXTION. SMALL QUARTER SIZED SPOT OF RED DRAINAGE SEEN ON DRESSING TO RIGHT HIP. DRESSING OTHERWISE C/D/I. PT USING URINAL APPROPRIATLY. PT REPORTS "PEP TALK THIS MORNING WAS REALLY HELPFUL." PT UPDATED ON PLAN OF RECOVERY AND PHYSICAL THERAPY. PT DENIES ADDITIONAL REQUESTS OR COMPLANTS. CALL LIGHT WITHIN REACH. CHAIR ALARM ON.
--- NOTE | 2022-09-19 15:40 | NUR ---
PHILIP PARKS: PT UP WITH PHYSICAL THERAPY. REPORTS WEAK UPPER BODY STRENGTH AND HAS TROUBLE CLIMBING THE STAIRS. PT DENIES NEED FOR ADDITIONAL PAIN MEDICATION. NO ADDITIONAL NEEDS AT THIS TIME.
--- NOTE | 2022-09-19 15:56 | NUR ---
AFTER I WAS DONE WITH HIS VITALS AND I&O PATIENT SAID HE NEEDED TO USE THE BEDSIDE COMMODE. I GAVE HIM SOME PRIVACY. CALL LIGHT CLOSE BY. SO THAN I WENT BACK KNOCKED HIS DOOR TO SEE IF HE WAS DONE. PATIENT SAID YES. CHANGED HIS GOWN AND NEW UNDERWEAR. PATIENT STOOD UP WITH HIS WALKER I STOOD BY IN CASE HE NEEDED ANY ASSISTANCE.
--- NOTE | 2022-09-19 16:02 | NUR ---
PT POST OP DAY 4 AFTER ORIF OF RIGHT HIP FRACTURE. PT UP WITH 1 PERSON ASSIST, GATE BELT, AND FWW TO CHAIR AND WITH PHYSICAL THERAPY. PT REPORTS FEELING GENERALY WEAK, CONTINUES TO HAVE DIFFICULTY WITH AMBULATION AND STAIRS. PT TOLERATING REGULAR DIET WTIH GOOD APPITITE. TOE TOUCH WEIGHT BEARING ONLY TO RIGHT LEG. PRN PAIN MEDICATION GIVEN FOR 0-8/10 PAIN IN RIGHT HIP. PT DENIES NAUSEA THROUGHOUT SHIFT. DRESSING TO RIGHT HIP CHANGED THIS MORNING AFTER BEING FULLY SATURATED. NEW DRESSING REMAINS WNL WITH SMALL AMOUNT OF RED DRAINAGE. BOWEL MEDICATIONS STARTED, PT VOIDIGN QUANITTY SUFFICIET. PT DECLINES CRYO CUFF, ICE PACKS INPLACE INSTEAD. PT USES CALL LIGHT AND MAKES NEEDS KNOWN.
--- NOTE | 2022-09-19 16:58 | NUR ---
HOURLY ROUNDING. PT REMAINS UP TO CHAIR. PT REPORTS 9/10 PAIN WITH MOVEMENT AND 2/10 PAIN WITH REST. SEE MAR FOR MEDICATION GIVEN. PT REPORTS HE "FELT A POP" IN HIS RIGHT HIP DURING PHYSICAL THERAPY. PT POINTS TO UPPER HIP WHEN DESCRIBING THIS POP. DRESSING REMAINS UNCHANGED WITH SMALL AMOUNT OF RED DRAINAGE. DR. MARTINEZ CALLED AND UPDATED. NO NEW ORDERS AT THIS TIME. PTS SIGNIFICANT OTHER TO BEDSIDE. NO ADDITIONAL REQUESTS OR COMPLAINTS. CALL LIGHT WITHIN REACH.
[2022-09-19 18:12] VITALS: BP 128/83
--- NOTE | 2022-09-19 18:25 | NUR ---
THIS RN TO ROOM TO CHECK ON PT. PT REMAINS UP TO CHAIR. VISITING WITH HIS SIGNIFICANT OTHER. PT REQUESTS TO GET BACK TO BED. PT UP TO STAND WITH FWW. PT HAS TROUBEL MOVING REPORTING WEAKNESS. PT TAKES A FEW STEPS BUT THEN BED HAS TO BE MOVED TO PT PT BECOMES UNSTEADY. PT ASSISTED IN TO BED. PT CONTINUES TO REPORT ARM WEAKNESS IN ADDTION TO LEGS. HEAD OF BED ELEVATED TO 20 THEN 30 DEGREES. PT REPORTS 0/10 PAIN IN RIGHT HIP WITH REST AND 5/10 WITH ACTIVITY. PT DENIES NEED FOR ADDITONAL PAIN MEDIATION AT THIS TIME. NO ADDITIONAL REQUESTS OR COMPLAINTS. ICE PACK REFILLED. CALL LIGHT WITHIN REACH. BED RAILS UP.
--- NOTE | 2022-09-19 19:31 | NUR ---
REPORT RECEIVED FROM DAY SHIFT RN. PT LYING IN BED ALERT AND ORIENTED. ASSISTED TO REPOSITION AND CLOSE BLINDS PER REQUEST. NO FURTHER NEEDS. WHITE BOARD UPDATED. CALL LIGHT IN REACH. BED ALARM FOR SAFETY.
[2022-09-19 20:36] VITALS: BP 123/82
--- NOTE | 2022-09-19 21:06 | NUR ---
EVENING ASSESSMENT COMPLETE. SCHEDULED MEDS ADMIN PER EMAR. PT REPORTS RIGHT HIP PAIN 10/02. PRN FOR PAIN ADMIN PER EMAR. FRESH ICE PACKS PROVIDED. PT DENIES NAUSEA. RIGHT HIP DRESSING INTACT WITH SMALL AMOUNT RED DRAINAGE. CMS INTACT. GENERALIZED EDEMA NOTED IN RIGHT LEG. HEEL PROTECTORS IN PLACE. URINAL EMPTIED. URINE YELLOW. PT TEARFUL WHEN DISCUSSING DISCHARGE PLAN. ENCOURAGEMENT PROVIDED. PT RECEPTIVE. PT DENIES QUESTIONS OR CONCERNS. CALL LIGHT IN REACH. BED ALARM FOR SAFETY.
--- NOTE | 2022-09-19 23:59 | NUR ---
PT RESTING IN BED WITH EYES CLOSED. RESPIRATIONS EVEN. URINAL EMPTIED. BED ALARM IN PLACE. CALL LIGHT IN REACH.
--- NOTE | 2022-09-20 02:43 | NUR ---
PT IN BED RESTING WITH EYES CLOSED. HOB ELEVATED. RESPIRATIONS EVEN. URINAL EMPTIED. BED ALARM FOR SAFETY.
--- NOTE | 2022-09-20 04:38 | NUR ---
PT RESTING IN BED WITH EYES CLOSED. RESPIRATIONS EVEN. CALL LIGHT IN REACH. BED ALARM FOR SAFETY.
[2022-09-20 05:39] VITALS: BP 103/76
--- NOTE | 2022-09-20 05:48 | NUR ---
PT AWAKENED FOR MORNING LABS. VS AND I&O OBTAINED. PRN FOR 9/10 RIGHT HIP PAIN ADMIN PER EMAR. FRESH ICE PACKS TO RIGHT HIP. ASSESSMENT UNCHANGED. PT INCONTINENT OF SMALL AMOUNT URINE. WILL WAIT FOR PAIN MEDS TO BECOME EFFECTIVE BEFORE MOVING PT TO CHANGE BRIEF.
--- NOTE | 2022-09-20 06:44 | NUR ---
PT CONTINUES TO REPORT RIGHT HIP PAIN 12/03. ADDITIONAL PRN FOR PAIN ADMIN. PT INCONTINENT OF URINE. STAFF ASSIST WITH SERAFIN CARE. CHUCKS AND GOWN CHANGED. PT ABLE TO ASSIST WITH CARES. REPOSITIONED IN BED. WARM BLANKET PROVIDED. NO FURTHER NEEDS.
--- NOTE | 2022-09-20 07:21 | NUR ---
Got report from assistant casino shift manager nurse. Patient currently laying in bed watching TV. Call light within reach, denies any cares at this time.
--- NOTE | 2022-09-20 10:41 | NUR ---
PATIENT CURRENLTY UP AND WORKING WITH PHYISCAL THERAPY.
[2022-09-20 11:13] VITALS: BP 115/77
--- NOTE | 2022-09-20 11:15 | NUR ---
INTO CHECK ON PATIENT AFTER PT. PATIENT CRYING IN CHAIR BECAUSE OF PAIN. PATIENT WAS 0/10 IN BED BUT AFTER PT PATIENT CURRENLTY 9/10. PAIN MEDICATION GIVEN. PATIENT ALSO USED THE URINAL WHICH SHOWED A LIGHT PINK COLOR. PATIENT SAID THAT HAPPENED BEFORE BUT THEN CLEARED YESTERDAY. THIS HAS NEVER HAPPENED BEFORE. PATIENT STATES, " THINKS IT WAS FROM HAVING A CATHETER. ICE APPLIED BACK TO RIGHT HIP.
--- NOTE | 2022-09-20 11:28 | NUR ---
PATIENT SAID HE WOULD LIKE TO TAKE A SHOWER SOMETIME TODAY. THAT IS THE GOAL.
--- NOTE | 2022-09-20 12:10 | NUR ---
SPOKE TO PATIENT ABOUT THE DISCHARGE PLAN. PATIENT HAS BEEN INSTRUCTED THAT HIS WALKER AND CANE ARE WAITING FOR HIS GIRLFRIEND TO PICK-UP FROM [employer]. PATIENT MAY NEED PLACEMENT FOR PT/OT. PATIENT'S HIP IS PAINFUL TODAY FROM DOING THE STAIRS YESTERDAY. ORDRED A X-RAY TO MAKE SURE THE HIP IS STILL OK. WILL SENT REFERRALS FOR PLACEMENT.
--- NOTE | 2022-09-20 12:27 | NUR ---
INTO SEE PATIENT. XRAY ORDERED AND WOULD LIKE A CALL ONCE REPORT IS BACK.
--- NOTE | 2022-09-20 13:28 | NUR ---
Xray in with patient currenlty as patient is back in bed from eating lunch.
--- NOTE | 2022-09-20 13:29 | NUR ---
PATIENT REQUESTED [facility] FOR REHAB. REFERRAL SENT TO [facility].
--- NOTE | 2022-09-20 14:17 | NUR ---
PATIENT RESTING IN BED AND STATES IF HE IS NOT MOVING HIS PAIN IS 1/10. PATIENT WOULD LIKE TO SHOWER LATER AFTER HIS 1500 PAIN MEDICATION. CALLED XRAY IN, PER DR. MARTINEZ XRAY NORMAL. PATIENT TO DO PT IS, NON WEIGHT BEARING TOE TOUCH.
[2022-09-20 14:22] VITALS: BP 123/80
--- NOTE | 2022-09-20 14:28 | NUR ---
PATIENT ADVISED OF RESULTS OF XRAY.
--- NOTE | 2022-09-20 14:56 | NUR ---
PATIENT GIVEN PAIN MEDICATION HE WOULD LIKE TO GET UP IN THE SHOWER. ANY MOVEMENT OUTSIDE OF LAYING IN BED MAKES HIS PAIN GO FROM 0/10 TO 9/10.
--- NOTE | 2022-09-20 16:26 | NUR ---
REPORT RECEIVED FROM NEO GAYTAN. THIS RN ASSUMING CARE OF PT UNTIL SHIFT CHANGE. PT FINISHED WITH SHOWER AND BACK TO BED. PT REPORTS 8/10 PAIN WITH ACTIVITY OF SHOWER THAT IS IMPROVING NOW THAT HE IS RESTING. PT DENIES NEED FOR ADDITIONAL PAIN MEDICATION. NO ADDITIONAL REQUESTS OR COMPLAINTS. DRESSING REMAINS INTACT WITH DRAINAGE UNCHANGED. CALL LIGHT WITHIN REACH. BED RAILS UP.
--- NOTE | 2022-09-20 16:29 | NUR ---
PT ASSISTED IN SHOWER CARES BY THIS MORTUARY TECHNICIAN ALONG WITH MORTUARY TECHNICIAN RYAN. PT WAS A 2PA/FWW PIVOT TO A WHEELED SHOWER CHAIR. PT WAS WINCING IN PAIN FROM HIS R HIP BUT WAS ABLE TO MOVE THE L LEG TO PIVOT TO CHAIR. PT WAS ABLE TO ASSIST IN 50% OF HIS SHOWER CARES, RYAN ASSISTED WITH SHOWER WHILE THIS MORTUARY TECHNICIAN CHANGED FULL LINENS ON BED, CLEANED ROOM. PT DRESSED IN NEW GOWN & SOCKS. BATHROOM CLEANED. PT R LEG ELEVATED, CALL LIGHT IN REACH.
--- NOTE | 2022-09-20 17:10 | NUR ---
THIS RN TO ROOM TO CHECK ON PT. PT ERPORTS 5/10 PAIN WITH MOVEMENT, SEE MAR FOR MEDICATION GIVEN. PTS SIGNIFICANT OTHER TO BEDSIDE WITH SNACKS FOR PT. PT DENIES ADDITONAL REQUESTS OR COMPLAINTS. PTS RASH TO FACE WORSENED PER PT, PT APPLYING LOTION. BED RAILS UP. CALL LIGHT WITHIN REACH.
[2022-09-20 18:16] VITALS: BP 118/69
--- NOTE | 2022-09-20 18:30 | NUR ---
THIS RN TO ROOM TO CHECK ON PT. PT RESTING IN BED, VISITING WITH SIGNIFICANT OTHER. PT REPORST PAIN IS WELL CONTROLLED AT 0/10 WHEN RESTING AND 4/10 WITH MOVEMENT. ICE WATER REFILLED. FRESH ICE PACKS PROVIDED. NO ADDITIONAL REQUESTS OR COMPLAINTS. CALL LIGHT WITHIN REACH. BED RAILS UP.
--- NOTE | 2022-09-20 18:34 | NUR ---
PT CALL LIGHT ON. PT REQUESTS ASSITANCE UP TO RESTROOM. CONTACT GUARD ASSIST WITH FWW UP TO RESTROOM. PT VOIDS AND HAS BOWEL MOVEMENT. DEPENDS SATUARTED. SERAFIN CARE DONE. DEPENDS CHANGED. EDUCATION DONE WIHT PT REGARDING THE IMPORTANCE OF ACTIVITY. PT AGREES TO GET UP TO CHAIR A FOR A BIT. PT UP TO CHAIR WITH STAND BY ASSIST AND FWW. VITAL SIGNS STABLE. PTS MOTHER AT BEDSIDE, UPDATED ON PLAN OF CARE. NO ADDITIONAL REQUESTS OR COMPLAINTS. CALL LIGHT WIHTIN REACH.
[2022-09-20 20:28] VITALS: BP 115/73
--- NOTE | 2022-09-20 20:30 | NUR ---
PT ASSESSED AND MEDICATIONS GIVEN. PAIN MEDICATIONS GIVEN. VSS. PT VOICED NO COMPLAINTS OR CONCERNS. SAFETY PRECAUTIONS MAINTAINED. CALL LIGHT WITHIN REACH. WILL CONTINUE TO MONITOR.
--- NOTE | 2022-09-21 03:14 | NUR ---
CALL LIGHT ANSWERED, pt REPORTING 8/10 GROIN PAIN. PRN PAIN MEDICATION GIVEN-SEE EMAR. URINAL SLO EMPTIED PER pt REQUEST. 900MLS OUTPUT NOTED. PRIMARY RN AWARE AND TO PROVIDED pt WITH ICE PACK. CALL LIGHT IN REACH.
[2022-09-21 05:00] VITALS: BP 101/60
--- NOTE | 2022-09-21 06:17 | NUR ---
PT RESTED WELL THROUGHOUT THE SHIFT. OXYCODONE GIVEN FOR PAIN. VSS. PT USING USINAL. SAFETY PRECAUTIONS MAINTAINED. CALL LIGHT WITHIN REACH. WILL CONTINUE TO MONITOR.
--- NOTE | 2022-09-21 08:00 | NUR ---
PATIENT SITTING UP AT EDGE OF BED EATING BREAKFAST. PROVIDED FRESH ICE PACKS. FULL BODY ASSESSMENT DONE. DRESSING C/D/I TO RIGHT SURGICAL SIT OF HIP. FULL BODY ASSESSMENT COMPLETED. ADMINISTERED PAIN MEDICATION PER MAR, RATES PAIN 7/10 ON PAIN SCALE.
--- NOTE | 2022-09-21 08:28 | NUR ---
CONTACTED DR MARTINEZ REGARDING USE OF ORAL TORADOL. HE WANTS PATIENT TO HAVE ORAL [facility] IT HAS BEEN APPROX. 6 DAYS SINCE LAST IV DOSE. ORAL TORADOL IS ONLY INDICATED A CONTINUATION OF IV THERAPY.
--- NOTE | 2022-09-21 09:24 | NUR ---
SPOKE WITH NORMA AT [facility], PATIENTS CHART IS IN REVIEW WITH NURSING. AT THIS TIME THEY WILL NOT HAVE ANY DISCHARGE UNTIL AT LEAST SUNDAY, BUT THEY WILL CALL WITH ANY UPDATES.
[2022-09-21 09:53] VITALS: BP 104/73
--- NOTE | 2022-09-21 10:00 | NUR ---
PATIENT RESTING BACK IN BED, CALLED TO USE URINAL. REFUSED TO GET UP AT THIS TIME, PLAN TO SIT UP IN RECLINER FOR LUNCH. PATIENT VERBALIZES WILLINGNESS. NO OTHER NEEDS AT THIS TIME.
--- NOTE | 2022-09-21 10:18 | NUR ---
REFERRAL FAXED TO [facility] FOR PLACEMENT.
--- NOTE | 2022-09-21 12:09 | NUR ---
PHYSICAL THERAPY INTO ROOM TO WORK WITH PATIENT, UP 1 PERSON ASSIST WITH WALKER MAINTAINING TOE-TOUCH WEIGHT BEARING. TOLERATING ACTIVITY FAIR, REPORTS SOME DIZZINESS, STATES "PROBABLY FROM PAIN MEDICATION". DRESSING TO RIGHT HIP C/D/I, CMS INTACT.
--- NOTE | 2022-09-21 13:12 | NUR ---
PATIENT RATES PAIN 0/10 RESTING STILL. PLAN FOR PATIENT TO WORK WITH PHYSICAL THERAPY AND THEN SIT UP IN RECLINER. PATIENT EATING LUNCH. PROVIDED FRESH ICE WATER.
[2022-09-21 13:49] VITALS: BP 100/69
--- NOTE | 2022-09-21 14:10 | NUR ---
PT MORE ALERT TODAY, WELCOME ME IN. TV ON, WHEN ASKED IF PT HAD ANY PAIN, HE SAID WHAT KIND? STARTED [facility] PHYSICAL...NEO MONTIEL IN AND LEARNING ADMINISTRATOR. PT STOPPED SHORT, REQUESTED I COME BACK SUNDAY. GAVE BLESSING AND WILL FOLLOW
--- NOTE | 2022-09-21 15:45 | NUR ---
RECIEVED REPORT FROM NEO MONTIEL.
--- NOTE | 2022-09-21 16:13 | NUR ---
IN ROOM TO ASSESS PT PAIN. PT STATES PAIN 9/10 DUE TO PHYSICAL THERAPY. PT SITTING IN RECLINER. ICE APPLIED TO RIGHT HIP/GROIN. DENIES NUMBNESS AND TINGLING AT THIS TIME. DENIES FURTHER NEEDS. CALL LIGHT IN REACH.
--- NOTE | 2022-09-21 16:16 | NUR ---
Spoke with PT. She was able to assist pt to a chair in the room. She also recommends this pt to a SNF.
[2022-09-21 18:13] VITALS: BP 110/80
--- NOTE | 2022-09-21 19:05 | NUR ---
REPORT RECEIVED FROM NEO ROBLES. PT SITTING UP IN BED. PT REPORTS NO NEEDS AT THIS TIME. CALL LIGHT IN REACH.
[2022-09-21 20:54] VITALS: BP 112/85
--- NOTE | 2022-09-21 20:59 | NUR ---
IN TO ADMINISTER MEDICATIONS, SEE MAR. PT REPORTING PAIN 5/10 IN GROIN ON RIGHT SIDE. PRN PAIN MEDICATION ADMINISTERED, SEE MAR. PT TAKES PO MEDICATIONS WITH NO ISSUES. VITALS AND I&Os COMPLETE. ASSESSMENT COMPLETE. LUNG SOUNDS CLEAR. BOWEL TONES ACTIVE. PEDAL PULSES PALPABLE AND EQUAL IN BILATERAL FEET. R HIP BRUISING NOTED. DRESSING TO RIGHT HIP D/I WITH SMALL AMOUNT OF SHADOWING NOTED. URINAL EMPTIED. PT DENIES ANY OTHER NEEDS AT THIS TIME. CALL LIGHT IN REACH.
--- NOTE | 2022-09-21 22:16 | NUR ---
IN TO ADMINISTER MEDICATION, SEE MAR. PT REPORTING PAIN 5/10 IN GROIN AREA. PT DENIES ANY OTHER NEEDS AT THIS TIME. CALL LIGHT IN REACH. PT REQUESTING NEW ICE PACKS. WILL PROVIDED ICE PACKS.
[2022-09-22 05:33] VITALS: BP 112/73
--- NOTE | 2022-09-22 05:40 | NUR ---
IN TO ROUND ON PT AND ADMINISTER MEDICATION, SEE MAR. PT REPORTING PAIN 6/10 IN RIGHT GROIN. SCHEDULED TORADOL ADMINISTERED, SEE MAR. PT TAKES PO MEDICATION WITH NO ISSUES. VITALS AND I&Os COMPLETE. ASSESSMENT COMPLETE. LUNG SOUNDS RHONCHI THAT CLEAR WITH COUGH. BOWEL TONES ACTIVE. PEDAL PULSES PALPABLE AND EQUAL BILATERALLY. RIGHT HIP DRESSING D/I WITH SMALL AMOUNT OF SHADOWING NOTED. PT REQUESTING ICE PACKS. ICE PACKS PROVIDED. WATER PROVIDED. PT DENIES ANY OTHER NEEDS AT THIS TIME. CALL LIGHT IN REACH.
--- NOTE | 2022-09-22 07:24 | NUR ---
RECEIVED REPORT FROM HAND WOOD SANDER RN. PT SLEEPING IN BED WITH EYES CLOSED. RESPIRATIONS EVEN AND REGULAR.
[2022-09-22 09:32] VITALS: BP 101/68
--- NOTE | 2022-09-22 10:50 | NUR ---
ROUNDED ON PT. PT REPORTED IMPROVED PAIN AFTER PO DILAUDID. HOB 45 DEGREES. CALL LIGHT WITHIN REACH. NO FURTHER NEEDS VOICED.
[2022-09-22 13:40] VITALS: BP 119/80
--- NOTE | 2022-09-22 13:47 | NUR ---
IN TO SEE PATIENT, LAURA PUGH AND RC PT AT THE BEDSIDE. UPDATED PATIENT THAT [facility] WILL NOT HAVE A BED AVAILABLE UNTIL SUNDAY. DISCUSSED THAT WILL GIVE THE PATIENT MORE TIME TO WORK WITH IN HOUSE PT. PATIENT STATES HE GIRLFRIEND HAS PICKED UP HIS CRUTCHES AND WALKER FOR WHEN HE IS ABLE TO RETURN HOME. NO FURTHER CONCERNS FROM THE PATIENT AT THIS TIME.
--- NOTE | 2022-09-22 14:30 | NUR ---
ROUNDED ON PT. PT REPORTS PAIN 8/10. PRN DILAUDID GIVEN WITH SCHEDULED TORADOL. REAPPLIED ICE PACKS. CALL LIGHT WITHIN REACH NO FURTHER NEEDS VOICED.
--- NOTE | 2022-09-22 16:08 | NUR ---
PT CALL LIGHT ANSWERED. PT REQ TO GO BACK TO BED. PT ASSISTED BACK TO BED 1 PA STAND PIVOT W FWW. PT HEEL PROTECTORS PUT ON. ICE WATER AND BLANKETS PROVIDED. NO NEEDS. CALL LIGHT WITHIN REACH
[2022-09-22 18:07] VITALS: BP 118/84
--- NOTE | 2022-09-22 18:13 | NUR ---
ROUNDED ON PT. HOB 30 DEGREES. CALL LIGHT WITHIN REACH. NO FURTHER NEEDS VOICED.
--- NOTE | 2022-09-22 19:00 | NUR ---
BEDSIDE REPORT, PT RESTING IN BED EYES CLOSED, RR 13/MIN. NO DISTRESS NOTED AT THIS TIME
--- NOTE | 2022-09-22 19:58 | NUR ---
PT REPORTS THAT HIS PAIN IS TOLERABLE AT REST AT THIS TIME. HE REPORTS HIS PAIN IS INCREASING 2/10, WILL PROVIDE PAIN COVERAGE WITH [facility] PASS
--- NOTE | 2022-09-22 20:25 | NUR ---
CALLED TO REPORT RASH ON PT FACE AND DISCUSS POSSIBLE HYDROCORTISONE CREAM FOR TREATMENT DUE TO ITCHING. NEW ORDER PROVIDED SEE REJI
[2022-09-22 21:27] VITALS: BP 125/83
--- NOTE | 2022-09-22 21:52 | NUR ---
PT REPORTS PAIN WAS A 1/10, THEN HE GOT UP OUT OF BED TO USE THE BATHROOM AND HIS PAIN INCREASED TO A 7/10 WITH ACTIVITY. PT ADMINISTERED 4MG PO DILAUDID PRN AND SCHEDULED TORDOL. WILL MONITOR FOR EFFECTIVENESS. PT SAID "WHY AM I NOT GETTING 8MG DILAUDID" THIS RN SAID "I AM GIVING YOU TWO DIFFERENT PAIN MEDICATIONS AT THIS TIME, WE WILL SEE IF THAT IS ENOUGH TO MANAGE YOUR PAIN" DISCUSSED WITH PT THE DANGERS OF TAKING MORE NARCOTIC PAIN MEDICATIONS THAN NEEDED, SUCH RESPIRATORY DEPRESSION AND CONSTIPATION. HE SAID "OH, I DONT LIKE TAKING ANYMORE THAN I HAVE TO." PT PROVIDED WITH FRESH ICE PACKS.
--- NOTE | 2022-09-22 23:21 | NUR ---
PT SITTING UP IN BED, NO COMPLAINT OF PAIN, HE REPORTS "I AM USUALLY SLEEPING BY NOW, I JUST GOT PULLED INTO THIS GAME" PT IS PLAYING A GAME ON HIS CELL PHONE.
--- NOTE | 2022-09-23 01:51 | NUR ---
PT RESTING IN BED EYES CLOSED RESPIRATION RATE 13/MIN, NO DISTRESS NOTED AT THIS TIME
--- NOTE | 2022-09-23 03:25 | NUR ---
PT RESTING QUIETLY IN BED, NO DISTRESS NOTED, RESP RATE 12/MIN.
[2022-09-23 05:13] VITALS: BP 96/56
--- NOTE | 2022-09-23 05:57 | NUR ---
PT HAS SLEPT WELL OVER SHIFT, PAIN WELL MANAGED WITH SCHEDULED PAIN REGIME AND 4MG PO DILAUDID NEEDED. HE IS VOIDING Q.S., BM YESTURDAY. ON ROOM AIR, S/L, V/S STABLE, NEW ICE PACKS PROVIDED THIS AM. HE IS ALERT AND ORIENTED, FORGETFUL AT TIMES. RX CREAM HAS IMPROVED FACIAL RASH.
--- NOTE | 2022-09-23 07:26 | NUR ---
RECEIVED REPORT FROM INSTALLATION DRAFTER RN. PT SLEEPING WITH EYES CLOSED. RESPIRATIONS EVEN AND REGULAR. CALL LIGHT WITHIN REACH.
[2022-09-23 09:35] VITALS: BP 106/65
--- NOTE | 2022-09-23 11:30 | NUR ---
ROUNDED ON PT. REPORTS PAIN MEDICATION IMPROVED HIS PAIN. VISITOR AT BEDSIDE. CALL LIGHT WITHIN REACH NO FURTHER NEEDS VOICED.
[2022-09-23 13:20] VITALS: BP 102/65
[2022-09-23 17:53] VITALS: BP 122/82
--- NOTE | 2022-09-23 19:24 | NUR ---
RECEIVED REPORT FROM DAY SHIFT RN. PATIENT IS RESTING IN BED. FAMILY AT BEDSIDE. NO NEEDS NOTED. CALL LIGHT IN REACH.
[2022-09-23 19:55] VITALS: BP 134/86
--- NOTE | 2022-09-23 20:15 | NUR ---
PATIENT ASSESMENT COMPLETED. PATIENTS VITALS TAKEN AND RECORDED. INTAKE AND OUTPUT RECORDED. PATIENTS IV FLUSHED AND SL PER ORDER. PATIENTS PM MEDS GIVEN PER ORDER. PATIENT RATES RIGHT HIP PAIN AT A 5/10, PRN PAIN MEDICATION GIVEN PER ORDER. FRESH ICE PACKS APPLIED TO RIGHT HIP. PATIENT REFUSES CRYO. PATIENTS DRESSING ON RIGHT HIP IS INTACT AND APPEARS SATURATED UNDERNEATH WITH OLD DRAINAGE. PATIENT PROVIDED WARM BLANKET AND FREXH ICE WATER. HEEL PROTECTORS IN USE. CMS IN RLE INTACT. NO FURTHER NEEDS NOTED. CALL LIGHT IN REACH.
--- NOTE | 2022-09-23 22:10 | NUR ---
PATIENT IS RESTING IN BED WITH EYES CLOSED, RR 16. CALL LIGHT IN REACH.K
--- NOTE | 2022-09-24 00:39 | NUR ---
PATIENT IS RESTING IN BED WITH EYES CLOSED, RR 16. CALL LIGHT IN REACH.
--- NOTE | 2022-09-24 02:14 | NUR ---
PATIENT IS RESTING IN BED WITH EYES CLOSED, RR 16. CALL LIGHT IN REACH.
--- NOTE | 2022-09-24 04:16 | NUR ---
PATIENT IS RESTING IN BED. URINAL EMPTIED. FRESH ICE PACKS PROVIDED. PATIENT RATES PAIN IN HIS RIGHT HIP AT A 5/10, PRN PAIN MEDICATION GIVEN PER ORDER. NO FURTHER NEEDS NOTED. CALL LIGHT IN REACH.
[2022-09-24 05:27] VITALS: BP 98/61
--- NOTE | 2022-09-24 06:10 | NUR ---
PATIENT IS RESTING IN BED WITH EYES CLOSED, RR 16. CALL LIGHT IN REACH.
--- NOTE | 2022-09-24 07:30 | NUR ---
PATIENT RESTING WITH EYES CLOSED, BEDSIDE REPORT WITH KOBE LARSON. PATIENT REPORTS FEELING COMFORTABLE, RATES PAIN 2/10 ON PAIN SCALE. FULL BODY ASSESSMENT DONE. LUNG SOUNDS CLEAR. REINFORCED DRESSING TO RIGHT HIP.
[2022-09-24 09:37] VITALS: BP 115/78
--- NOTE | 2022-09-24 09:51 | NUR ---
REMOVED IV TO LEFT HAND, REDNESS AND PAIN AT INSERTION SITE. PATIENT ABLE TO GET SURGICAL LEG BACK INTO BED WITH GAIT BELT LOOP. PATIENT REPORTS PAIN IS TOLERABLE WITH MOVEMENT. PATIENT HAD MEDIUM SOFT BM. NO OTHER NEEDS AT THIS TIME.
--- NOTE | 2022-09-24 13:38 | NUR ---
PATIENT TOE-TOUCH TO BATHROOM WITH WALKER. PATIENT TOLERATED ACTIVITY FAIR. PLAN TO ADMINISTER PAIN MEDICATION AND PROVIDE WHEELCHAIR RIDE BACK TO BED.
[2022-09-24 13:55] VITALS: BP 112/72
--- NOTE | 2022-09-24 18:25 | NUR ---
PATIENT SHIFTING SELF IN BED, APPLY FRESH ICE. PATIENT REPORTS PAIN WELL CONTROLLED. AT REST RATES PAIN 1/10 ON PAIN SCALE. GOOD CMS, NOTED 1 PLUS EDEMA TO RIGHT LEG. DRESSING C/D/I. LUNG SOUNDS CLEAR. NO OTHER NEEDS AT THIS TIME. CALL LIGHT WITHIN REACH.
[2022-09-24 18:53] VITALS: BP 119/71
--- NOTE | 2022-09-24 19:39 | NUR ---
RECEIVED REPORT FROM DAY SHIFT RN. PATIENT IS RESTING IN BED EATING A SNACK. NO NEEDS NOTED. CALL LIGHT IN REACH.
[2022-09-24 20:25] VITALS: BP 113/64
--- NOTE | 2022-09-24 20:37 | NUR ---
PATIENTS VITALS TAKEN AND RECORDED. URINAL EMPTIED. INTAKE AND OUTPUT RECORDED. PM MEDS PER ORDER. PATIENT REPORTS 5/10 PAIN IN HIS RIGHT HIP, PRN MEDS PER ORDER. PATIENTS RIGHT HIP DRESSING C/D/I AND SHADOWING NOTED. PATIENT IS AAOX4. PATIENT REPOSITIONED SELF IN BED. PATIENT PROVIDED WITH SNACK AND FERSH ICE WATER. PATIENT HAS HELL PROTECOTRS IN PLACE. RLE EDEMA NOTED TO BE GENERALIZED. PATIENT DENIES ANY FURTHER NEEDS. CALL LIGHT IN REACH.
--- NOTE | 2022-09-24 22:25 | NUR ---
PATIENT IS RESTING IN BED WITH EYES CLSOED, RR 15. CALL LIGHT IN REACH.
--- NOTE | 2022-09-25 00:20 | NUR ---
PATIENT IS RESTING IN BED WATHICNG TV. PATIENT PROVIDED WITH FRESH ICCE PACKAS AND APPLIED TO RIGHT HIP. PATIENT RATES PAIN AT A 2/10 AND DENIES THE NEED FOR PAIN MEDICATION AT THIS TIME. PATIENT DENIES ANY FURTHER NEEDS. CALL LIGHT IN REACH.
--- NOTE | 2022-09-25 02:21 | NUR ---
PATIENT IS RESTING IN BED WITH EYES CLOSED, RR14. CALL LIGHT IN REACH.
--- NOTE | 2022-09-25 04:09 | NUR ---
PATIENT IS RESTING IN BED PLAYING A GAME ON HIS PHONE. PATIENT REPORTS 3/10 PAIN IN HIS RIGHT HIP AND DENIES THE NEED FOR PAIN MEDICATION AT THIS TIME. PATIENT HAS ICE PACKS ON RIGHT HIP. PATIENT HAS HEEL PROTECTORS IN PLACE. PATIENT PROVIDED FRESH ICE WATER. URINAL EMPTIED. NO FURTHER NEEDS NOTED. CALL LIGHT IN REACH.
[2022-09-25 05:43] VITALS: BP 115/82
--- NOTE | 2022-09-25 06:15 | NUR ---
PATIENTS VITALS TAKEN AND RECORDED. URINAL EMPTIED. INTAKE AND OUTPUT RECORDED. PATIENT PROVIDED FFRESH ICE PACKS AND APPLIED TO RIGHT HIP. PATIENT RATES PAIN AT A 1/10 AND DENIES THE NEED FOR PAIN MEDICATION. PATIENT HAS HEEL PROTECTORS IN PLACE. PATIENT DENIES ANY FURTHER NEEDS. CALL LIGHT IN REACH.
--- NOTE | 2022-09-25 07:38 | NUR ---
PT RESTING EYES CLOSED AT TIME OF SHIFT REPORT, LEFT UNDISTURBED. BED ALARM IS SET CALL LIGHT AND FRESH FLUIDS AT BEDSIDE.
[2022-09-25 09:35] VITALS: BP 101/69
--- NOTE | 2022-09-25 10:37 | NUR ---
PATIENT UP IN HALLWAY WITH PT AND FWW. AWAITING RESPONSE FROM SNF ON PLACEMENT.
--- NOTE | 2022-09-25 10:48 | NUR ---
PT TOLERATES 100% OF MORNING MEAL DENIES OFFER OF MORE ITEMS. UP TO WORK WITH P/T COOPERATIVE AND MOTIVATAED. ADDITIONAL 4 MG DILAUDID GIVEN PER REQUEST TOTAL 8MG GIVEN THIS A.M. PT UP IN THE CHAIR NOW WATCHING TV AGREES HE IS COMFORTABLE. CALL LIGHT AND NEEDED ITEMS IN REACH.
[2022-09-25 13:49] VITALS: BP 111/72
--- NOTE | 2022-09-25 14:27 | NUR ---
LUNCH WELL TOLERATED PT UPRIGHT IN BED DENIES NEEDS NO C/O DISCOMFORTS
--- NOTE | 2022-09-25 15:17 | NUR ---
DRESSING TO RIGHT HIP HAS TO PLACES OF SHADOWING UNCHANGED FROM THIS A.M. PT RESTING IN BED NO C/O PAIN OR REQUESTS OF ANY ITEMS.
--- NOTE | 2022-09-25 17:38 | NUR ---
PT SITTING UP IN BED VISITING ACTIVELY WITH HIS GIRLFRIEND WHO BROUGHT SALADS FOR EVENING MEAL. FRESH ICE PACK PROVIDED FOR HIS R HIP PER REQUEST
[2022-09-25 18:12] VITALS: BP 122/87
--- NOTE | 2022-09-25 19:26 | NUR ---
RECEIVED REPORT FROM DAY SHIFT RN. PATIENT IS RESTING IN BED EATING A SALAD. PATIENT DENIES ANY NEEDS. CALL LIGHT IN REACH.
[2022-09-25 21:00] VITALS: BP 120/77
--- NOTE | 2022-09-25 21:23 | NUR ---
PATIENTS VITALS TAKEN AND RECORDED. URINAL EMPTIED. INTKAE AND OUTPUT RECORDED. PATIENTS PM MEDS GIVEN PER ORDER. PATIENT RATES PAIN IN HIS RIGHT HIP AT A 3/10 AND DENIES THE NEED FOR PAIN MEDICATION AT THIS TIME. PATIENTS RIGHT HIP DRESSING IS INTACT AND OLD SHADOWING NOTED. PATIENT PROVIDED WITH X2 ICE PACKS AND APPLIED TO RIGHT HIP. PATIENT IS RESTING IN BED WATCHING TV. PATIENT DENIES ANY FURTHER NEEDS. CALL LIGHT IN REACH.
--- NOTE | 2022-09-25 22:14 | NUR ---
PATIENT IS RESTING IN BED. PATIENTS BED TURNED TO WATCH FIREWORKS. PATIENT DENIES ANY FURTHER NEEDS. CALL LIGHT IN REACH.
--- NOTE | 2022-09-25 22:40 | NUR ---
PATIENT CALLED AND REPORTS 3/10 PAIN IN RIGHT HIP. PRN PAIN MEDICATION GIVEN PER ORDER. X2 ICE PACKS ON RIGHT HIP. PATIENT DENIES ANY FURTHER NEEDS. CALL LIGHT IN REACH.
--- NOTE | 2022-09-26 00:30 | NUR ---
PATIENT IS RESTING IN BED WITH EYES CLOSED, RR 15. CALL LIGHT IN REACH.
--- NOTE | 2022-09-26 02:22 | NUR ---
PATIENT ASSISTED TO THE BR A 1PA W/FWW. PATIENT ABLE TO VOID. NO BM NOTED ONLY GAS. PATIENT IS BACK IN BED RESTING. PATIENT RATES PAIN AT A 3/10 AND DENIES THE NEED FOR PAIN MEDICATION AT THIS TIME. FRESH ICE PACKS APPLIED TO RIGHT HIP. PATIENT PROVIDED WITH FRESH ICE WATER. PATIENT DENIES ANY NEEDS. CALL LIGHT IN REACH.
--- NOTE | 2022-09-26 04:06 | NUR ---
PATIENT IS RESTING IN BED WITH EYES CLSOED, RR 15. CALL LIGHT IN REACH. BED ALARM ON FOR SAFETY.
[2022-09-26 05:23] VITALS: BP 108/61
--- NOTE | 2022-09-26 06:09 | NUR ---
PATIENT IS RESTING IN BED. PATIENTS VITALS TAKEN AND RECORDED. INTAKE AND OUTPUT RECORDED. PATIENT RATES PAIN AT A 2/10 AND DENIES THE NEED FOR PAIN MEDICATION AT THIS TIME. FRESH ICE PACKS X2 PROVIDED AND PLACED ON RIGHT HIP. PATIENT DENIES ANY FURTHER NEEDS. CALL LIGHT IN REACH.
--- NOTE | 2022-09-26 07:21 | NUR ---
PT AWAKE WATCHING TV AT TIME OF SHIFT REPORT. SITTING UP IN BED DRINKING SODA. PT DENIES NEEDS OR DISCOMFORTS AT THIS TIME, NEEDED ITEMS IN REACH.
--- NOTE | 2022-09-26 08:45 | NUR ---
PT CONTINUES UPRIGHT IN BED TOLERATES MOST OF MORNING MEAL. NO C/O PAIN OR DISCOMFORTS. PRN PAIN MEDS ADMINISTERED WITH MEAL IN ANTICIPATION OF P/T THIS MORNING,
[2022-09-26 09:39] VITALS: BP 105/68
--- NOTE | 2022-09-26 10:17 | NUR ---
PT WORKING WITH P/T AT THIS TIME
--- NOTE | 2022-09-26 11:30 | NUR ---
DR MARTINEZ IN TO SEE PT. PLANS MOVING FORWARD DISCUSSED ALL QUESTIONS ANSWERED
[2022-09-26 13:23] VITALS: BP 113/78
--- NOTE | 2022-09-26 15:36 | NUR ---
PT SITTING UPRIGHT IN BED READING A MAGAZINE. SCHEDULED MEDS ADMINISTERED PT DOES NOT C/O PAIN OR VOICE ANY NEEDS OF. FRESH H20 AND NEEDED ITEMS IN REACH
--- NOTE | 2022-09-26 17:53 | NUR ---
PT BRINGS IN EVENING MEAL AND EATS WITH HIM. PT RESTING IN BED PLANS TO GET UP TO SHOWER SOON
[2022-09-26 18:05] VITALS: BP 107/69
--- NOTE | 2022-09-26 19:22 | NUR ---
RECEIVED REPORT FROM DAY SHIFT RN. PATIENT IS RESTING IN BED WATCHING TV. PATIENT DENIES ANY NEEDS. CALL LIGHT IN REACH.
[2022-09-26 21:09] VITALS: BP 110/71
--- NOTE | 2022-09-26 21:25 | NUR ---
PATIENT ASSESMENT COMPLETED. PATEINTS VITALS TAKEN AND RECORDED. URINAL EMPTIED. INTAKE AND OUTPUT RECORDED. PATIENTS OM MEDS PER ORDER. PATIENT RATES PAIN AT A 3/10 AND DENIES THE NEED FOR ADDITIONAL PAIN MEDICATION AT THIS TIME. PATIENT PROVIDED WITH FRESH ICE WATER. PATIENTS DRESSING ON RIGHT HIP HAS NOTED OLD SHADOWING. PATIENT PROVIDED WITH X2 ICE PACKS AND APPLIED TO RIGHT HIP. PATIENT IS AAOX4. PATIENT DENIES ANY FURTHER NEEDS. CALL LIGHT IN REACH.
--- NOTE | 2022-09-26 22:16 | NUR ---
PATIENT IS RESTING IN BED WATCHING TV. PATIENT DENIES ANY NEEDS. CALL LIGHT IN REACH.
--- NOTE | 2022-09-26 23:38 | NUR ---
REPORT RECEIVED FROM KOBE LARSON. PT RESTING IN BED, CALL LIGHT IN REACH.
--- NOTE | 2022-09-27 01:00 | NUR ---
PT RESTING IN BED, EYES CLOSED. RR EVEN, UNLABORED. BED ALARM ON, CALL LIGHT IN REACH.
--- NOTE | 2022-09-27 02:00 | NUR ---
PT RESTING IN BED, EYES CLOSED. RR EVEN, UNLABORED. BED ALARM ON, CALL LIGHT IN REACH.
--- NOTE | 2022-09-27 03:00 | NUR ---
PT RESTING IN BED, EYES CLOSED. RR EVEN, UNLABORED. CALL LIGHT IN REACH.
--- NOTE | 2022-09-27 04:00 | NUR ---
PT RESTING IN BED, EYES CLOSED. RR EVEN, UNLABORED. BED ALARM ON, CALL LIGHT IN REACH.
[2022-09-27 05:05] VITALS: BP 100/61
--- NOTE | 2022-09-27 05:31 | NUR ---
ASSESSMENT, VS AND I&O COMPLETED. DRESSING INTACT. PT RESTING IN BED, DENIES PAIN AT THIS TIME. NO NEEDS AT THIS TIME. CALL LIGHT IN REACH.
--- NOTE | 2022-09-27 06:17 | NUR ---
PT RESTING IN BED, EYES CLOSED. RR EVEN, UNLABORED. BED ALARM ON, CALL LIGHT IN REACH.
--- NOTE | 2022-09-27 06:59 | NUR ---
REPORT FROM Sebastian MORELAND RN. PATIENT RESTING IN BED ON LEFT SIDE. EYES CLOSED, RESPIRATIONS EVEN AND UNLABORED. ALLOWED TO REST AT THIS TIME. CALL LIGHT IN REACH, BED RAILS UP X2.
--- NOTE | 2022-09-27 07:58 | NUR ---
PT REQ TO USE BR. PT ASSISTED TO BR SBA W FWW. 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 ICE PACKS AND ICE WATER PROVIDED. LINEN CHANGED. PT REFUSED SHOWER. PT BACK TO BED. NO NEEDS. CALL LIGHT WITHIN REACH
[2022-09-27 09:29] VITALS: BP 109/80
--- NOTE | 2022-09-27 10:00 | NUR ---
Spoke with PT. She states pt doing very well with PT. Was able to walk >100 ft and was able to complete stairs. I spoke with Chago and he would like to go home. Discussed [facility] with Chago and he is open to a phone call for visit. I will call [facility] and ask they call or visit pt today. Depending on when pts discharges. Texted Dr. Mcdonnell update on all of the above. [id number] by Dr. Mcdonnell he will discharge this pt today.
[2022-09-27] MEDS ORDERED: DICLOFENAC SODI75 MG PO (10:57)
[2022-09-27] MEDS ORDERED: HEALTHYLAX17 GM PO (10:57)
[2022-09-27] MEDS ORDERED: XARELTO10 MG PO (10:57)
[2022-09-27] MEDS ORDERED: NICOTINE1 EAC2 TD (10:57)
[2022-09-27] MEDS ORDERED: HYDROMORPHONE HC4 MG PO (10:57)
[2022-09-27 13:25] VITALS: BP 114/81
--- NOTE | 2022-09-27 15:21 | NUR ---
PATIENT DRESSING TO RIGHT HIP CHANGED. INCISION WELL APPROXIMATED, CRISTIAN IN PLACE, NO SIGNS OF INFECTION-NO DRAINAGE/REDNESS/WARMTH PRESENT TO INCISION. PATIENT C/O PAIN 3/10, PRN DILAUDID GIVEN. AWAITING TRANSPORTATION FROM [facility] OTHER THIS EVENING AFTER WORK AND PATIENT IS READY FOR DISCHARGE. ALL OTHER PATIENT CARE NEEDS MET AT THIS TIME.
--- NOTE | 2022-09-27 17:41 | NUR ---
[facility] IN TO SPEAK WITH PATIENT.
== END 2022-09-27 17:55 | disposition home or self-care (01) | DRG 481 ==
LOC: ED 20:51 → CCU 23:26 → MS 23:26 → CCU 09-10 11:50 → MS 09-17 12:55
PROVIDERS: ADMIT Specialist; ATTEND Specialist
PROC: 30233R1 Transfusion of Nonautologous Platelets into Peripheral Vein, Percutaneous Approach (ICD-10-PCS; 2022-09-09)
PROC: HZ2ZZZZ Detoxification Services for Substance Abuse Treatment (ICD-10-PCS; 2022-09-11)
PROC: 0T9B70Z Drainage of Bladder with Drainage Device, Via Natural or Artificial Opening (ICD-10-PCS; 2022-09-13)
PROC: 0QS604Z Reposition Right Upper Femur with Internal Fixation Device, Open Approach (ICD-10-PCS; principal; 2022-09-15 12:15)
DX: S72.144A Nondisplaced intertrochanteric fracture of right femur, initial encounter for closed fracture (principal); E87.1 Hypo-osmolality and hyponatremia; F10.239 Alcohol dependence with withdrawal, unspecified; J90 Pleural effusion, not elsewhere classified; S50.311A Abrasion of right elbow, initial encounter; F12.90 Cannabis use, unspecified, uncomplicated; D69.6 Thrombocytopenia, unspecified; M54.50 Low back pain, unspecified; R07.81 Pleurodynia; K76.0 Fatty (change of) liver, not elsewhere classified; E87.6 Hypokalemia; R00.0 Tachycardia, unspecified; K70.30 Alcoholic cirrhosis of liver without ascites; D64.9 Anemia, unspecified; F17.200 Nicotine dependence, unspecified, uncomplicated; Z86.711 Personal history of pulmonary embolism; Z86.19 Personal history of other infectious and parasitic diseases; Z71.41 Alcohol abuse counseling and surveillance of alcoholic; Z71.6 Tobacco abuse counseling; Z98.890 Other specified postprocedural states; W01.0XXA Fall on same level from slipping, tripping and stumbling without subsequent striking against object, initial encounter; Y90.8 Blood alcohol level of 240 mg/100 ml or more
CPT/HCPCS: 01230; 36415; 36430; 51798; 71045; 73501; 73502; 76700; 80048; 80053; 80074; 80076; 81003; 82607; 82746; 83735; 84443; 85025; 85060; 85610; 85730; 86850; 86900; 86901; 86922; 87536; 93005; 93010; 94667; 94668; 94760; 97110; 97116; 97162; 97530; 99285 25; A9270-GY; C1713; C9113; G0480; J0690; J1100; J1170; J1650; J1885; J2001; J2060; J2250; J2274; J2405; J2560; J2704; J2795; J3010; J3360; J3411; J3475; J3480; J3490; J7030; J7060; J7121; P9035

== ENCOUNTER 2024-02-14 15:35 | Emergency (ER) | payer OTHER ==
[~2024-02-14] VITALS: Ht 177.8 cm; Wt 67.2 kg
[~2024-02-14 15:35] MED LIST changes: +DICLOFENAC SODI75 MG PO; +HEALTHYLAX17 GM PO; +HYDROMORPHONE HC4 MG PO; +NICOTINE1 EAC2 TD; +XARELTO10 MG PO
[2024-02-14 16:16] LABS: BASOPHILS 0.6 % (0-2); EOSINOPHILS 0.4 % (0-6); HEMATOCRIT 41.7 % (35.0-50.0); HEMOGLOBIN 14.2 g/dL (12.0-18.0); LYMPHOCYTES 11.6 % (24-44); MCH 33.6 (27-36); MCV 98.7 fl (81-99); MONOCYTES 11.2 % (0-12); NEUTROPHILS 76.2 % (39-80); PLATELET COUNT 174 K/uL (140-440); RBC 4.22 M/ul (4.3-5.7); RDW 14.3 (10.5-15.0)
[2024-02-14 16:23] LABS: ALBUMIN 2.1 g/dL (3.4-5.0); ALBUMIN/GLOBULIN RATIO 0.5 (1.1-2.4); ANION GAP 14.7 (7-21); BILIRUBIN, TOTAL 2.3 ng/dL (0.2-1.0); CALCIUM 8.3 mg/dL (8.5-10.1); POTASSIUM 2.7 mmol/L (3.5-5.1); PROTEIN, TOTAL 6.3 g/dL (6.4-8.2)
[2024-02-14 16:30] LABS: BUN/CREATININE RATIO 1.4 (6.0-28.6); CREATININE, SERUM 0.71 mg/dL (0.70-1.30)
[2024-02-14] MEDS ORDERED: ONDANSETRON ODT8 MG PO (17:55)
[2024-02-14] MEDS ORDERED: K-TAB ER20 MEQ PO (17:55)
[2024-02-14 18:00] VITALS: BP 108/79
[2024-02-14] MEDS ORDERED: POTASSIUM CHLORIDE 10 MEQ TABCR PO ONE (18:00)
--- NOTE | 2024-02-14 19:27 | EKG ---
[facility] [address] [facility] [place], [place] [address] Signed Sinus tachycardia Right axis deviation Low voltage QRS Cannot rule out Anterior infarct (cited on or before 14-FEB-2024) Abnormal ECG When compared with ECG of 14-FEB-2024 15:52, (Unconfirmed) Right axis deviation is now present Confirmed by Cristiano Freeman MD ([id number]) on 02/14/2024 7:27:39 PM Electronically Signed By: CRISTIANO FREEMAN MD 02/14/241926 PATIENT NAME: DARRIUS CORDERO GALLITO Electrocardiogram DATE OF : 72 PHYSICIAN: CRISTIANO FREEMAN MD REPORT #: [id number] REPORT IS CONFIDENTIAL AND NOT TO BE RELEASED WITHOUT AUTHORIZATION
--- NOTE | 2024-02-15 06:01 | EKG ---
[facility] [address] [place], [place] [address] Signed EKG completed, results pending confirmation PATIENT NAME: CONSUELODARRIUS Electrocardiogram DATE OF : 72 PHYSICIAN: PRELIMINARY REPORT #: [id number] REPORT IS CONFIDENTIAL AND NOT TO BE RELEASED WITHOUT AUTHORIZATION
== END 2024-02-14 18:00 | disposition home or self-care (01) ==
LOC: ED 15:35
PROVIDERS: Emergency Medicine
DX: K70.31 Alcoholic cirrhosis of liver with ascites (principal); E87.6 Hypokalemia; Z86.711 Personal history of pulmonary embolism
CPT/HCPCS: 36415; 49083; 80053; 83690; 85025; 93005; 93010; 99284-25; A9270

== ENCOUNTER 2024-03-20 11:50 | Emergency (ER) | payer OTHER ==
[~2024-03-20] VITALS: Ht 177.8 cm; Wt 73.0 kg
[~2024-03-20 11:50] MED LIST changes: +K-TAB ER20 MEQ PO
[2024-03-20 13:28] LABS: BASOPHILS 0.6 % (0-2); EOSINOPHILS 0.7 % (0-6); HEMATOCRIT 35.7 % (35.0-50.0); HEMOGLOBIN 12.2 g/dL (12.0-18.0); LYMPHOCYTES 13.2 % (24-44); MCH 32.7 (27-36); MCHC 34.3 g/dl (30-36); MCV 95.4 fl (81-99); NEUTROPHILS 71.5 % (39-80); PLATELET COUNT 162 K/uL (140-440); RBC 3.74 M/ul (4.3-5.7); RDW 16.5 (10.5-15.0)
[2024-03-20 13:39] LABS: ALBUMIN 1.7 g/dL (3.4-5.0); ALBUMIN/GLOBULIN RATIO 0.36 (1.1-2.4); ANION GAP 11.9 (7-21); BILIRUBIN, TOTAL 1.8 ng/dL (0.2-1.0); BUN/CREATININE RATIO 7.14 (6.0-28.6); CALCIUM 7.6 mg/dL (8.5-10.1); CREATININE, SERUM 0.7 mg/dL (0.70-1.30); POTASSIUM 4.9 mmol/L (3.5-5.1); PROTEIN, TOTAL 6.4 g/dL (6.4-8.2)
[2024-03-20 15:26] LABS: BILIRUBIN, URINE POSITIVE (negative); BLOOD/HGB, URINE NEGATIVE (Negative); KETONE, URINE TRACE (Negative); LEUK ESTERASE, URINE TRACE (negative); NITRITE, URINE POSITIVE (negative); PH, URINE 7.5 (5-7)
[2024-03-20 15:32] LABS: CASTS, URINE NONE SEEN \\lpf; CRYSTALS, URINE NONE SEEN (0-1+); EPITHELIAL CELLS, URINE SQUAMOUS 2+ /lpf (0-1+); RED BLOOD CELLS, URINE 0-1 /hpf (0-5); WHITE BLOOD CELLS, URINE >50 /HPF (0-5)
[2024-03-20 15:33] LABS: BACTERIA, URINE 4+ /hpf (negative); COLLECTION TYPE, URINE CLEAN CATCH; REFLEX CULTURE, URINE No (No)
[2024-03-20] MEDS ORDERED: LASIX20 MG PO (16:40)
[2024-03-20] MEDS ORDERED: ALDACTONE25 MG PO (16:40)
[2024-03-20 16:59] VITALS: BP 96/64
== END 2024-03-20 16:55 | disposition home or self-care (01) ==
LOC: ED 11:50
PROVIDERS: Emergency Medicine
DX: K74.60 Unspecified cirrhosis of liver (principal); R18.8 Other ascites; Z79.899 Other long term (current) drug therapy
CPT/HCPCS: 36415; 49083; 80053; 81001; 83690; 85025; 99284-25